=== PATIENT | female | born 1990 | race Caucasian/White ===

== ENCOUNTER 2020-10-13 11:33 | Outpatient (REF) | payer MEDICAID, SELFPAY ==
[2020-10-14 08:31] LABS: BV Int Neg Control Negative (Negative); BV Int Pos Control Positive (Positive)
[2020-10-15 04:47] LABS: C. trachomatis RNA TMA NOT DETECTED (NOT DETECTED); N. gonorrhoeae RNA TMA NOT DETECTED (NOT DETECTED)
== END 2020-10-13 11:34 | disposition home or self-care (01) ==
LOC: HO.LAB 11:33
PROVIDERS: Visit Provider Advanced Practice Midwife
DX: Z01.419 Encounter for gynecological examination (general) (routine) without abnormal findings (principal); Z30.09 Encounter for other general counseling and advice on contraception
CPT/HCPCS: 87480; 87491; 87510; 87591; 87660

== ENCOUNTER 2021-06-30 11:34 | Outpatient (REF) | payer MEDICAID, SELFPAY ==
[2021-07-01 02:56] LABS: CT PCR NOT DETECTED (Not Detect.); NG PCR NOT DETECTED (Not Detect.)
[2021-07-01 11:30] LABS: BV Int Neg Control Negative (Negative); BV Int Pos Control Positive (Positive)
== END 2021-06-30 11:35 | disposition home or self-care (01) ==
LOC: HO.LAB 11:34
PROVIDERS: Visit Provider Advanced Practice Midwife
DX: N92.3 Ovulation bleeding (principal); Z20.2 Contact with and (suspected) exposure to infections with a predominantly sexual mode of transmission
CPT/HCPCS: 87480; 87491; 87510; 87591; 87660; 99212

== ENCOUNTER 2021-07-26 11:18 | Outpatient (REF) | payer MEDICAID, SELFPAY ==
--- NOTE | ~2021-07-26 | US_ITS ---
EXAMINATION: US PELVIS CLINICAL INFORMATION: Ovulation bleeding. COMPARISON: None. TECHNIQUE: Ultrasound of the pelvis is performed using both transabdominal and transvaginal transducers along with Doppler. Transvaginal imaging is performed due to inadequate visualization transabdominally. FINDINGS: The uterus is anteverted and anteflexed measuring 11.4 cm in length, 5.4 cm in AP and 6.7 cm in transverse dimension. Endometrial thickness is 1.1 cm. There is a hypoechoic lesion with eccentric calcification in the posterior body of uterus measuring 2.0 x 2.0 x 2.5 cm, suggestive of fibroid. The cervix is heterogeneous with small anechoic cyst seen within. Adnexa: The right ovary is removed. Left ovary measures 5.8 x 4.8 x 3.1 cm. Volume 45.2 mL. There are 2 hyperechoic lesions in the left ovary measuring 4.5 x 3.2 x 2.7 cm and 0.6 x 0.7 x 0.5 cm, question small fibroids. US/US pelvic and transvaginal IMPRESSION: Suspect small left ovarian fibroids. Small nabothian cysts seen in a heterogeneous-appearing cervix. Likely calcified uterine fibroid in the posterior body of the uterus..
== END 2021-07-26 11:19 | disposition home or self-care (01) ==
LOC: HO.US 11:18
PROVIDERS: Visit Provider Advanced Practice Midwife
DX: N92.3 Ovulation bleeding (principal)
CPT/HCPCS: 76830; 76856

== ENCOUNTER → 2021-08-23 13:25 | Outpatient (BNVA) | payer MEDICAID, SELFPAY | PROVIDERS: Visit Provider Advanced Practice Midwife ==

== ENCOUNTER 2021-09-08 15:07 | Outpatient (REF) | payer MEDICAID, SELFPAY ==
[2021-09-08 16:46] LABS: Hematocrit 34.7 % (37.0-47.0); Hemoglobin 11.3 g/dl (12.0-16.0); Mean Corpuscular HGB Conc 32.6 g/dl (31.0-35.0); Mean Corpuscular Hemoglobin 28.2 pg (27.0-33.0); Mean Corpuscular Volume 86.5 fL (80.0-98.0); Mean Platelet Volume 10.1 fL (9.4-12.3); Platelet Count 371 X10*3/uL (160-400); Red Blood Count 4.01 X10*6/uL (4.20-5.50); Red Cell Distribution Width 15.7 % (11.0-16.0); White Blood Count 8.3 X10*3/uL (4.8-10.8)
[2021-09-08 17:23] LABS: HCG Quantitative < 2 mIU/mL; TSH reflex Free T4 1.56 uIU/mL (0.32-4.0)
[2021-09-09 08:51] LABS: CT PCR NOT DETECTED (Not Detect.); NG PCR NOT DETECTED (Not Detect.)
== END 2021-09-08 15:08 | disposition home or self-care (01) ==
LOC: HO.LAB 15:07
PROVIDERS: PCP Internal Medicine; Visit Provider Obstetrics & Gynecology
DX: N93.9 Abnormal uterine and vaginal bleeding, unspecified (principal); N83.299 Other ovarian cyst, unspecified side; D21.9 Benign neoplasm of connective and other soft tissue, unspecified
CPT/HCPCS: 36415; 84443; 84702; 85027; 87491; 87591; 99212

== ENCOUNTER 2021-09-22 16:10 | Outpatient (REF) | payer MEDICAID, SELFPAY ==
--- NOTE | ~2021-09-22 | US_ITS ---
EXAMINATION: US PELVIS CLINICAL INFORMATION: Abnormal bleeding, follow-up left dermoid. COMPARISON: Ultrasound pelvis 07/26/2021. TECHNIQUE: Ultrasound of the pelvis is performed using both transabdominal and transvaginal transducers along with Doppler. Transvaginal imaging is performed due to inadequate visualization transabdominally. FINDINGS: Uterus: The uterus is anteverted and measures 10.6 cm in length, 5.6 cm AP and 6.4 cm in transverse dimension. The double wall endometrial thickness is 1.5 cm. The uterus is smooth in contour and has normal myometrial echogenicity. There is a hypoechoic lesion in the upper posterior body of the uterus measuring 1.7 x 2 0.1 to 2.7 cm. Previously it measured 2.0 x 2.0 x 2.5 cm.. Adnexa: Right ovary has been surgically removed. Left ovary measures 3.0 x 3.0 x 2.0 cm. Volume 9.6 mL. There is solitary heterogeneous lesion measuring 4.2 x 3.9 x 3.5 cm. Previously it measured 4.5 x 3.2 x 2.7 cm. There is no fracture free fluid in the cul-de-sac. US/US pelvic and transvaginal IMPRESSION: Anteverted uterus with a solitary fibroid in the posterior upper body of the uterus, stable. Heterogeneous hyperechoic lesion left ovary, stable. There is no free fluid in the cul-de-sac.
== END 2021-09-22 16:11 | disposition home or self-care (01) ==
LOC: HO.US 16:10
PROVIDERS: PCP Internal Medicine; Visit Provider Obstetrics & Gynecology
DX: N93.9 Abnormal uterine and vaginal bleeding, unspecified (principal)
CPT/HCPCS: 76830; 76856

== ENCOUNTER → 2021-10-04 15:08 | Outpatient (BNVA) | payer MEDICAID, SELFPAY | PROVIDERS: PCP Internal Medicine; Visit Provider Obstetrics & Gynecology | DX: N93.9 Abnormal uterine and vaginal bleeding, unspecified (principal); N83.299 Other ovarian cyst, unspecified side | CPT/HCPCS: 99212 ==

== ENCOUNTER 2021-10-31 12:37 | Outpatient (REF) | payer MEDICAID, SELFPAY ==
--- NOTE | ~2021-10-31 | MR_ITS ---
EXAMINATION: MR PELVIS WITHOUT AND WITH CONTRAST CLINICAL INFORMATION: Pelvic pain with history of a left ovarian lesion. COMPARISON: Pelvic ultrasound dated from 09/22/2021. TECHNIQUE: Multiple routine MRI sequences through the pelvis were obtained on a high-field 1.5 Tram MRI before and after the uneventful administration of 8 mL Gadavist gadolinium-based IV contrast. FINDINGS: UTERUS: Anteverted uterus has a normal configuration and measures 10.2 cm [id number]-[id number] x 5.7 cm anterior-posterior x 7.1 cm transverse. Normal endometrial thickness for patient's age, 1.1 cm. There is thickening of the posterior upper junctional zone measuring up to 2.3 cm in maximum thickness (4:15). There are a few T2 hypointense intramural fibroids, for instance measuring 1.1 cm in the anterior uterine body (4:16). scar is identified in the lower anterior uterus. Susceptibility artifacts are also identified in the lower anterior abdominal wall, likely from prior surgery. CERVIX: Small nabothian cysts. VAGINA: Normal; no mass seen. RIGHT OVARY: History of right oophorectomy. LEFT OVARY: The left ovary measures approximately 4.8 x 3.5 x 4.3 cm. There is redemonstration of an up to 4 cm left ovarian lesion demonstrating an area of increased T1/T2 signal that drops out in the fat saturated images, most consistent with the presence of macroscopic fat. On postcontrast images, there is no suspicious nodular enhancement within this lesion. KIDNEYS: Two normally positioned kidneys are seen. No hydronephrosis. BLADDER: Urinary bladder normal. PELVIC FREE FLUID: No free fluid or ascites. LYMPH NODES: No pathologically enlarged lymph nodes. OSSEOUS STRUCTURES: No acute or suspicious osseous abnormalities. 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 Given the size of the lesion, this could predispose to torsion/detorsion, and surgical referral could be obtained if indicated. Abnormal thickening of the junctional zone in the posterior upper uterus, raising the possibility of focal adenomyosis. Small intramural uterine fibroids.
[2021-10-31 12:38] LABS: Blood Urea Nitrogen 11 mg/dL (9-16); Estimated Glomerular Filt Rate > 60
== END 2021-10-31 12:38 | disposition home or self-care (01) ==
LOC: HO.MRI 12:37
PROVIDERS: Visit Provider Obstetrics & Gynecology
DX: N83.299 Other ovarian cyst, unspecified side (principal); N93.9 Abnormal uterine and vaginal bleeding, unspecified
CPT/HCPCS: 36415; 72197; 82565; 84520; A9585

== ENCOUNTER → 2021-11-02 13:41 | Outpatient (BNVA) | payer MEDICAID, SELFPAY | PROVIDERS: Visit Provider Obstetrics & Gynecology ==

== ENCOUNTER 2021-11-23 13:49 | Outpatient (REF) | payer MEDICAID, SELFPAY ==
[2021-11-26 01:21] LABS: HPV mRNA E6/E7 rflx Not Detected (Not Detected)
== END 2021-11-23 13:50 | disposition home or self-care (01) ==
LOC: HO.LAB 13:49
PROVIDERS: PCP Internal Medicine; Visit Provider Advanced Practice Midwife
DX: Z01.411 Encounter for gynecological examination (general) (routine) with abnormal findings (principal); Z11.51 Encounter for screening for human papillomavirus (HPV); N93.9 Abnormal uterine and vaginal bleeding, unspecified; N83.292 Other ovarian cyst, left side; D48.9 Neoplasm of uncertain behavior, unspecified; Z90.721 Acquired absence of ovaries, unilateral
CPT/HCPCS: 87624; 88142

== ENCOUNTER → 2022-07-28 10:38 | Outpatient (BNVA) | payer SELFPAY | PROVIDERS: PCP Internal Medicine; Visit Provider Physician Assistant | DX: Z02.79 Encounter for issue of other medical certificate (principal) ==

== ENCOUNTER 2023-06-06 16:28 | Emergency (ER) | payer OTHER, SELFPAY ==
--- NOTE | ~2023-06-06 | XR_ITS ---
EXAMINATION: XR LUMBOSACRAL SPINE CLINICAL INFORMATION: Pain. COMPARISON: 08/05/2019. TECHNIQUE: Three views of the lumbosacral spine. FINDINGS: There is minimal retrolisthesis of L4 over L5. The alignment is otherwise normal. The disc spaces are maintained. The bone mineralization is normal. The vertebral body heights are maintained. The soft tissues are unremarkable. XR/XR lumbar spine 2-3V IMPRESSION: Minimal retrolisthesis L4 over L5. No evidence for fracture.
--- NOTE | ~2023-06-06 | XR_ITS ---
EXAMINATION: XR KNEE, LEFT CLINICAL INFORMATION: Pain. COMPARISON: None available. TECHNIQUE: Four views of the left knee. FINDINGS: No fracture or joint effusion. Alignment is anatomic. Joint spaces are maintained. No abnormal soft tissue calcification. XR/XR knee LT 3V IMPRESSION: No significant abnormality identified.
--- NOTE | ~2023-06-06 | XR_ITS ---
EXAMINATION: XR KNEE, RIGHT CLINICAL INFORMATION: Pain. Fall. COMPARISON: None available. TECHNIQUE: Four views of the right knee. FINDINGS: No fracture or joint effusion. Alignment is anatomic. Joint spaces are maintained. No abnormal soft tissue calcification. XR/XR knee RT 3V IMPRESSION: No significant abnormality identified.
[2023-06-06 16:49] VITALS: BP 168/100; PULSE 75; RESP 14; TEMP 36.7; O2SAT 99; BMI 28.7
--- NOTE | 2023-06-06 16:49 | ED_ITS ---
HPI - Fall General Chief Complaint: Fall Stated Complaint: fall at work, leg/back pain Time Seen by Provider: 06/06/23 17:55 Source: patient Mode of arrival: ambulatory Limitations: no limitations History of Present Illness HPI Narrative: Patient is a 33-year-old female who presents emergency department for evaluation after work-related injury. Patient states that she was bringing a hand cart filled with boxes down a set of stairs. She slipped on the last stair causing her to fall backwards with her back striking into the stairwell and the hand cart falling on top of her with the boxes landing on her knees. She denies any head strike or loss of consciousness. Denies anticoagulants unknown coagulation disorders. She is currently reporting pain diffusely across the lower back in addition to bilateral knee pain. She was able to ambulate after the incident occurred though it is painful to do so. Denies any numbness or tingling of the extremities. Denies any bladder bowel dysfunction. Denies any chest pain, shortness of breath, abdominal pain. Related Data Home Medications Medication Instructions Recorded Confirmed lisinopril 20 mg tablet 20 mg PO DAILY 10/13/20 11/23/21 Previous Rx's Medication Instructions Recorded ferrous sulfate 325 mg (65 mg 325 mg PO DAILY 90 days #90 tabs 12/27/21 iron) tablet,delayed release Allergies Allergy/AdvReac Type Severity Reaction Status Date / Time No Known Allergies Allergy Verified 11/23/21 14:06 [No Known Allergies*] Review of Systems Review of Systems: Yes all other systems are reviewed and are negative PMFSH Past Medical History Attestation statement: The following information was validated with the patient. Source: old records reviewed Medical History Abscess of right fallopian tube Anxiety HTN (hypertension) Surgical History History of Hx of removal of ovary Family History Family History Paternal Aunt Breast cancer Social History Social History Alcohol intake: never Advance Directives: No Advance Directives Information Provided: No Gender identity: Female Physical Exam Vital Signs: Vital Signs: Last Vital Signs Temp 98.0 F 06/06/23 16:49 Pulse 75 06/06/23 16:49 Resp 14 06/06/23 16:49 BP 168/100 H 06/06/23 16:49 Pulse Ox 99 06/06/23 16:49 O2 Del Method Room Air 06/06/23 16:49 BMI result Body Mass Index 28.7 Appearance: Alert.?Oriented to person, place and time. No acute distress.?Normal affect. Eyes: Pupils equal, round and reactive to light.? ENT: Pharynx normal.?? Neck: Normal inspection.? Neck supple.?? CVS: Heart sounds normal. Normal heart rate and rhythm.? Pulses normal.?? Respiratory: No respiratory distress.? Lung sounds clear to auscultation bilaterally?? Abdomen: Soft and non-tender. Normoactive bowel sounds. Back: Bilateral lumbar spine paraspinal muscle tenderness upon palpation. No palpable step-offs, deformities, Skin: Skin warm and dry.? Normal skin color.? Extremities: No lower extremity edema.? No calf ttp?2+ DP/PT pulse bilaterally. Examination of right knee is unremarkable no deformity, laxity or effusion. Left knee with small effusion, crepitus, no laxity or obvious deformity. Neuro: Moves all extremities spontaneously. Sensation intact bilaterally. CN II- XII intact. No focal neuro deficits. Ambulates with normal steady gait. Course Course Course Narrative: RME: 33yo F c/o bilateral knee and low back pain s/p mechanical trip and fall while at work this morning. Hypertensive in triage, ambulating with mild limping gait X-rays ordered Full HPI, ROS and PE to be performed by primary ED provider. Medical Decision Making Medical Decision Making MDM Narrative: Patient is a 33-year-old female who presents emergency department for work- related injury with fall and subsequent bilateral knee and lower back pain. At the time of my examination she is overall well-appearing. She is nontoxic, afebrile. She is hypertensive, though she has not yet taken her antihypertensive medication. She is asymptomatic denies dizziness, lighthea dedness, chest pain, shortness of breath. Reviewed XR imaging obtained from rapid medical examination, bilateral knees are without any acute fracture or dislocation. Upon physical examination there is no laxity though she does have a small effusion with crepitus in the left. Extremities are neurovascularly intact distally. She is ambulatory with an antalgic gait. Discussed conservative treatment her sprain of the knee with rest, ice, compression with beneath bandage, elevation, acetaminophen/ibuprofen for pain. XR imaging of the lumbar spine revealing minimal retro listhesis of L4 over L5 which may be related to injury she sustained today. At this time no indication of cauda equina syndrome, would defer CT/MRI imaging. She has normal bladder bowel dysfunction. Advised he follow up with primary care provider/workman's comp for further management, discussed she may require course of physical therapy should her pain persist. We discussed worrisome symptoms that would warrant re- evaluation or emergency department. Differential Diagnosis Differential Diagnoses: The differential diagnosis associated with the presentat ion includes (As noted above) Independent Interpretation I performed an independent interpretation of an: Plain X-Ray (I personally interpreted x-ray imaging of the bilateral knees lumbar spine agree with radiologist impression, no evidence of acute fracture or dislocation.) Radiology Impression Discussion of test interpretation with radiology: I have reviewed the radiologist's reading. Radiologist Impression: XR/XR knee LT 3V IMPRESSION: No significant abnormality identified. XR/XR knee RT 3V IMPRESSION: No significant abnormality identified. XR/XR lumbar spine 2-3V IMPRESSION: Minimal retrolisthesis L4 over L5. ? No evidence for fracture. Tests considered The following testing was considered but not selected: Considered CT/MRI imaging of lumbar spine as noted above, imaging deferred at this time. Prescription Management I considered prescription management with: Pain Medication Discharge Plan Discharge Clinical Impression: Left knee sprain, Retrolisthesis of vertebrae Patient Disposition: Home, Self-Care Instructions: Knee Sprain (ED), How to Use an Elastic Bandage (ED), Spondylolisthesis (ED) Additional Instructions: As discussed, the x-rays of your knees do not show any evidence of a fracture or dislocation. Furthermore a ligament injury is not well appreciated on x-ray imaging. If you continue to have pain, it you should follow-up with primary care provider/workman's comp provider for further evaluation. Please be sure to rest, apply ice to the bilateral knees for 10-15 minutes 3-4 times daily, use Stefan bandage for compression, elevate your legs when possible. You can take ibuprofen 200 mg, 3 tablets (600mg) every 6-8 hours as needed for pain, in addition to Tylenol 500 mg, 2 tablets (1,000mg) every 4-6 hours as needed for pain, but not to exceed 3 doses daily (3,000mg).? The x-ray imaging of your lower back indicates minimal retro isthesis of L4 over L5, as we discussed, this may be in relation to the fall you sustained at work today. Please contact your primary care provider/workman's comp provider for further evaluation and management. It may be beneficial for you to have a course of physical therapy if you continue to have pain. You may return back to emergency department any new or worsening symptoms or concerns. Prescriptions: No Action ferrous sulfate 325 mg (65 mg iron) tablet,delayed release (DR/EC) 325 mg PO DAILY 90 Days Qty: 90 1RF lisinopril 20 mg tablet 20 mg PO DAILY Referrals: Physician,Unknown J [Primary Care Provider] - Stand Alone Forms: Work/School Release Interventions: ED Discharge Assessment Last Done: 06/06/23 19:11 Discharge Date/Time: 06/06/23 19:11
--- OUTSIDE RECORDS SUMMARY | 2023-06-06 18:15 | XMS_ITS | Continuity of Care Document ---
Author Name Unknown Organization [facility] [place] [facility] Address [address] [place] [address]- Care Team Providers Care Mosaicist Name Role Phone Derek Cox III, MD Primary Care Physician Encounter [facility] [place] [facility] R [id number] Date(s): 03/10/22 - 04/09/22 [facility]te [facility] [address] [place] [address]- Attending Physician: Admlisa, Efrain Admitting Physician: AdmtrEfrain Referring Physician: Admtr, Ar8 Allergies, Adverse Reactions, Alerts No Known Medication Allergies Immunizations Given and Recorded Vaccine Date Status Refusal Reason SARS-CoV-2 (COVID-19) mRNA-1273 vaccine 09/22/21 R ecorded SARS-CoV-2 (COVID-19) mRNA-1273 vaccine 03/14/21 R ecorded SARS-CoV-2 (COVID-19) mRNA-1273 vaccine 02/14/21 R ecorded Medications Climara 0.05 mg/24 hours weekly transdermal film, extended release 1 patch, Topically, Every week, # 4 patch, 1 Refills, Maintenance, 03/30/22 23:06:00 EDT, Patch, [facility], Partial fill upon patient request if the prescription is for a schedule II opioid drug., 167.64, cm, 03/30/22 13:05:00 EDT... Start Date: 03/30/22 Status: Ordered Colace sodium 100 mg oral capsule 100 mg, 1, capsule, By Mouth, 2 times a day, PRN, # 30 capsule, Refills 0, Tot. Refills 0, Maintenance, for constipation, 03/30/22 23:06:00 EDT, Route to Pharmacy Electronically, [facility], Partial fill upon patient request if the... Start Date: 03/30/22 Status: Ordered FeroSul 325 mg oral tablet 1 tablet = 325 mg, By Mouth, Daily Start Date: 03/31/22 Status: Ordered ibuprofen 800 mg oral tablet 800 mg, 1, tablet, By Mouth, Every 8 hours, # 30 tablet, Refills 0, Tot. Refills 0, Maintenance, 03/30/22 23:05:00 EDT, Route to Pharmacy Electronically, [facility], Partial fill upon patient request if the prescription is for a sc... Start Date: 03/30/22 Status: Ordered Lisinopril = 20 mg, By Mouth, Daily, 0 Refills, Maintenance, 12/30/21 10:29:00 EST, Partial fill upon patient request if the prescription is for a schedule II opioid drug. Start Date: 12/30/21 Status: Ordered Problem List Condition Effective Dates Status Health Status Inform ant Anxiety(Confirmed) Active Hypertension(Confirmed) Active Pyosalpinx(Confirmed) Active
--- OUTSIDE RECORDS SUMMARY | 2023-06-06 18:15 | XMS_ITS | Continuity of Care Document ---
Author Name Unknown Organization [facility] [place] Address [address] [place] [address]- Care Team Providers Care Cruller Maker Machine Name Role Phone Not on Staff, PCP Primary Care Physician Unavail able Encounter [facility] [place] Date(s): 08/30/22 - 09/29/22 [facility] [place] [facility] [address] [place] [address]- Allergies, Adverse Reactions, Alerts No Known Medication Allergies Immunizations Given and Recorded Vaccine Date Status Refusal Reason SARS-CoV-2 (COVID-19) mRNA-1273 vaccine 09/22/21 R ecorded SARS-CoV-2 (COVID-19) mRNA-1273 vaccine 03/14/21 R ecorded SARS-CoV-2 (COVID-19) mRNA-1273 vaccine 02/14/21 R ecorded Medications Climara 0.05 mg/24 hours weekly transdermal film, extended release 1 patch, Topically, Every week, # 4 patch, 1 Refills, Maintenance, 09/05/22 9:13:00 EST, Patch, [facility], Partial fill upon patient request if the prescription is for a scheduleII opioid drug., 167.64, cm, 07/31/22 15:00:00 EDT,... Start Date: 09/05/22 Status: Ordered Colace sodium 100 mg oral capsule 100 mg, 1, capsule, By Mouth, 2 times a day, PRN, # 30 capsule, Refills 0, Tot. Refills 0, Maintenance, for constipation, 03/30/22 23:06:00 EDT, Route to Pharmacy Electronically, [facility], Partial fill upon patient request if the... Start Date: 03/30/22 Status: Ordered Femring 0.1 mg/24 hr vaginal ring 1 each, Vaginally, Every 3 months, # 1 each, 2 Refills, Maintenance, 08/31/22 10:34:00 EST, [facility], Partial fill upon patient request if the prescription is for a schedule II opioid drug., 167.64, cm, 07/31/22 15:00:00 EDT, Hei... Start Date: 08/31/22 Status: Ordered FeroSul 325 mg oral tablet 1 tablet = 325 mg, By Mouth, Daily Start Date: 03/31/22 Status: Ordered ibuprofen 800 mg oral tablet 800 mg, 1, tablet, By Mouth, Every 8 hours, # 30 tablet, Refills 0, Tot. Refills 0, Maintenance, 04/14/22 10:16:00 EDT, Route to Pharmacy Electronically, [facility], Partial fill upon patient request if the prescription is for a sc... Start Date: 04/14/22 Status: Ordered Lisinopril = 20 mg, By Mouth, Daily, 0 Refills, Maintenance, 12/30/21 10:29:00 EST, Partial fill upon patient request if the prescription is for a schedule II opioid drug. Start Date: 12/30/21 Status: Ordered Problem List Condition Confirmation Course Effective Dates Status Health St at[facility] Informant Anxiety Confirmed Active Hypertension Confirmed Active Obese class I Confirmed Active Pyosalpinx Confirmed Active Patient Care team information Care Team Personnel Name: Linette Jefferson RN Position: S RN Member Role: Primary Care Nurse Name: Not on Staff, PCP Position: S Physician (General Medicine) Member Role: PCP Care Team Related Persons Name: ROSELIA CHAPMAN Address: home [address] [place] [id number]
--- OUTSIDE RECORDS SUMMARY | 2023-06-06 18:15 | XMS_ITS | Continuity of Care Document ---
Author Name Unknown Organization [facility] Siobhan hughess [facility] Address [address] [place] [address]- Care Team Providers Care Gear Technician Name Role Phone Not on Staff, PCP Primary Care Physician Unavail able Encounter [facility] Date(s): 05/18/22 - 06/17/22 [facility] [address] [place] [address]- Allergies, Adverse Reactions, Alerts No Known Medication Allergies Immunizations Given and Recorded Vaccine Date Status Refusal Reason SARS-CoV-2 (COVID-19) mRNA-1273 vaccine 09/22/21 R ecorded SARS-CoV-2 (COVID-19) mRNA-1273 vaccine 03/14/21 R ecorded SARS-CoV-2 (COVID-19) mRNA-1273 vaccine 02/14/21 R ecorded Medications Climara 0.1 mg/24 hours weekly transdermal film, extended release 1 patch, Topically, Every week, # 4 patch, 5 Refills, Maintenance, 06/08/22 14:51:00 EDT, Patch, [facility], Partial fill upon patient request if the prescription is for a schedule II opioid drug., 167.64, cm, 04/14/22 10:01:00 EDT... Start Date: 06/08/22 Status: Ordered Colace sodium 100 mg oral capsule 100 mg, 1, capsule, By Mouth, 2 times a day, PRN, # 30 capsule, Refills 0, Tot. Refills 0, Maintenance, for constipation, 03/30/22 23:06:00 EDT, Route to Pharmacy Electronically, [facility], Partial fill upon patient request if the... Start Date: 03/30/22 Status: Ordered FeroSul 325 mg oral tablet 1 tablet = 325 mg, By Mouth, Daily Start Date: 03/31/22 Status: Ordered ibuprofen 800 mg oral tablet 800 mg, 1, tablet, By Mouth, Every 8 hours, # 30 tablet, Refills 0, Tot. Refills 0, Maintenance, 04/14/22 10:16:00 EDT, Route to Pharmacy Electronically, [facility], Partial fill upon patient request [...] Status Inform ant Anxiety(Confirmed) Active Hypertension(Confirmed) Active Obese class I(Confirmed) Active Pyosalpinx(Confirmed) Active Care Team Personnel Name: Not on Staff, PCP
--- OUTSIDE RECORDS SUMMARY | 2023-06-06 18:15 | XMS_ITS | Continuity of Care Document ---
Author Name Unknown Organization [facility] [place] [facility] Address [address] [place] [address]- Care Team Providers Care Gas Appliance Mechanic Name Role Phone Not on Staff, PCP Primary Care Physician Unavail able [place] [facility] [place]04[place] - 10/04/22 [facility] [place] [facility] [address] [place] [address]- Allergies, Adverse Reactions, Alerts No Known Medication Allergies Immunizations Given and Recorded Vaccine Date Status Refusal Reason SARS-CoV-2 (COVID-19) mRNA-1273 vaccine 09/22/21 R ecorded SARS-CoV-2 (COVID-19) mRNA-1273 vaccine 03/14/21 R ecorded SARS-CoV-2 (COVID-19) mRNA-1273 vaccine 02/14/21 R ecorded Medications Climara 0.05 mg/24 hours weekly transdermal film, extended release 1 patch, Topically, Every week, # 4 patch, 1 Refills, Maintenance, 09/05/22 9:13:00 EST, Patch, [facility], Partial fill upon patient request if the prescription is for a scheduleII opioid drug., 167.64, cm, 07/31/22 15:00:00 EDT,... Start Date: 09/05/22 Status: Ordered Colace sodium 100 mg oral capsule 100 mg, 1, capsule, By Mouth, 2 times a day, PRN, # 30 capsule, Refills 0, Tot. Refills 0, Maintenance, for constipation, 03/30/22 23:06:00 EDT, Route to Pharmacy Electronically, [facility], Partial fill upon patient request if the... Start Date: 03/30/22 Status: Ordered Femring 0.1 mg/24 hr vaginal ring 1 each, Vaginally, Every 3 months, # 1 each, 2 Refills, Maintenance, 08/31/22 10:34:00 EST, [facility], Partial fill upon patient request [...] 04/14/22 10:16:00 EDT, Route to Pharmacy Electronically, [facility], Partial fill upon patient request if [...] Related Persons Name: ROSELIA CHAPMAN Address: home [address] [place] [id number]
--- OUTSIDE RECORDS SUMMARY | 2023-06-06 18:15 | XMS_ITS | Continuity of Care Document ---
Author Name Unknown Organization [facility] Address [address], [address] [place] [address]- Care Team Providers Care Dental Tech Name Role Phone Not on Staff, PCP Primary Care Physician Unavail able Encounter [facility] [place] Date(s): 07/31/22 - 08/07/22 [facility] Mary Dunc[facility] [address], [address] [place] [address]- Attending Physician: Nicole Valentine MD Allergies, Adverse Reactions, Alerts No Known Medication Allergies Immunizations Given and Recorded Vaccine Date Status Refusal Reason SARS-CoV-2 (COVID-19) mRNA-1273 vaccine 09/22/21 R ecorded SARS-CoV-2 (COVID-19) mRNA-1273 vaccine 03/14/21 R ecorded SARS-CoV-2 (COVID-19) mRNA-1273 vaccine 02/14/21 R ecorded Medications Climara 0.1 mg/24 hours weekly transdermal film, extended release 1 patch, Topically, Every week, # 4 patch, 5 Refills, Maintenance, 06/08/22 14:51:00 EDT, Patch, [facility], Partial fill upon patient request if the prescription is for a schedule II opioid drug., 167.64, cm, 04/14/22 10:01:00 EDT... Start Date: 06/08/22 Status: Ordered Colace sodium 100 mg oral capsule 100 mg, 1, capsule, By Mouth, 2 times a day, PRN, # 30 capsule, Refills 0, Tot. Refills 0, Maintenance, for constipation, 03/30/22 23:06:00 EDT, Route to Pharmacy Electronically, [facility], Partial fill upon patient request if the... Start Date: 03/30/22 Status: Ordered FeroSul 325 mg oral tablet 1 tablet = 325 mg, By Mouth, Daily Start Date: 03/31/22 Status: Ordered ibuprofen 800 mg oral tablet 800 mg, 1, tablet, By Mouth, Every 8 hours, # 30 tablet, Refills 0, Tot. Refills 0, Maintenance, 04/14/22 10:16:00 EDT, Route to Pharmacy Electronically, [facility], Partial fill upon patient request [...] class I Confirmed Active Pyosalpinx Confirmed Active Vital Signs Most recent to oldest [Reference Range]: 1 Height 167.64 cm (07/31/22 3:00 PM) Weight 87.36 kg (07/31/22 3:00 PM) Pulse Rate [55-90 bpm] 79 bpm (07/31/22 3:00 PM) Body Mass Index [18.5-24.99 kg/m2] 31.09 kg/m2 *>HHI* (07/31/22 3:00 PM) Blood Pressure [90-138/55-84 mm Hg] 123/ 78mm Hg (07/31/22 3:00 PM) Respiratory Rate [16-30 br/min] 20 br/mi n (07/31/22 3:00 PM) Weight Obtained Via Standing scale (07/31/22 3:00 PM) Patient Care team information Personnel Name: Not on Staff, PCP
--- OUTSIDE RECORDS SUMMARY | 2023-06-06 18:15 | XMS_ITS | Continuity of Care Document ---
Author Name Unknown Organization [facility] Siobhan hughess [facility] Address [address], [address] [place] [address]- Care Team Providers Care Strap Machine Operator Automatic Name Role Phone Not on Staff, PCP Primary Care Physician Unavail able Encounter [facility] Date(s): 05/18/22 - 06/25/22 [facility] [address], [address] [place] [address]- Attending Physician: Nicole Valentine MD Allergies, Adverse [...] 5 Refills, Maintenance, 06/08/22 14:51:00 EDT, Patch, [facility], Partial fill upon patient request if the prescription is for a schedule II opioid drug., 167.64, cm, 04/14/22 10:01:00 EDT... Start Date: 06/08/22 Status: Ordered Colace sodium 100 mg oral capsule 100 mg, 1, capsule, By Mouth, 2 times a day, PRN, # 30 capsule, Refills 0, Tot. Refills 0, Maintenance, for constipation, 03/30/22 23:06:00 EDT, Route to Pharmacy Electronically, [facility], Partial fill upon patient request if the... Start Date: 03/30/22 Status: Ordered FeroSul 325 mg oral tablet 1 tablet = 325 mg, By Mouth, Daily Start Date: 03/31/22 Status: Ordered ibuprofen 800 mg oral tablet 800 mg, 1, tablet, By Mouth, Every 8 hours, # 30 tablet, Refills 0, Tot. Refills 0, Maintenance, 04/14/22 10:16:00 EDT, Route to Pharmacy Electronically, [facility], Partial fill upon patient request [...]
--- OUTSIDE RECORDS SUMMARY | 2023-06-06 18:15 | XMS_ITS | Continuity of Care Document ---
Author Name Unknown Organization [facility] Address [address], [address] [place] [address]- Care Team Providers Care Molecular Spectroscopist Name Role Phone Not on Staff, PCP Primary Care Physician Unavail able [place] [facility](s): 03/10/22 - 03/17/22 [facility] [address], [address] [place] [address]- Attending Physician: Nicole Valentine MD Referring Physician: Not on Staff, Referring MD Medications Ibuprofen Refills 0, Maintenance, 12/30/21 10:29:00 EST, Partial fill upon patient request if the prescription is for a schedule II opioid drug. Start Date: 12/30/21 Status: Ordered Lisinopril By Mouth, Daily, 0 Refills, Maintenance, 12/30/21 10:29:00 EST, Partial fill upon patient request if the prescription is for a schedule II opioid drug. Start Date: 12/30/21 Status: Ordered Problem List Condition Effective Dates Status Health Status Inform ant Anxiety(Confirmed) Active Hypertension(Confirmed) Active Pyosalpinx(Confirmed) Active
--- OUTSIDE RECORDS SUMMARY | 2023-06-06 18:15 | XMS_ITS | Continuity of Care Document ---
Author Name Unknown Organization [facility] Address [address], [address] [place] [address]- Care Team Providers Care Congressional Aide Name Role Phone Not on Staff, PCP Primary Care Physician Unavail able Encounter [facility] Date(s): 07/31/22 - 08/30/22 [facility]unc[facility] [address], [address] [place] [address]- Attending Physician: Efrain Rodriguez Admitting Physician: Efrain Rodriguez Referring Physician: AdmtrEfrain Allergies, Adverse Reactions, Alerts No Known Medication Allergies Immunizations Given and Recorded Vaccine Date Status Refusal Reason SARS-CoV-2 (COVID-19) mRNA-1273 vaccine 09/22/21 R ecorded SARS-CoV-2 (COVID-19) mRNA-1273 vaccine 03/14/21 R ecorded SARS-CoV-2 (COVID-19) mRNA-1273 vaccine 02/14/21 R ecorded Medications Climara 0.1 mg/24 hours weekly transdermal film, extended release 1 patch, Topically, Every week, # 4 patch, 5 Refills, Maintenance, 06/08/22 14:51:00 EDT, Patch, [facility], Partial fill upon patient request if the prescription is for a schedule II opioid drug., 167.64, cm, 04/14/22 10:01:00 EDT... Start Date: 06/08/22 Status: Ordered Colace sodium 100 mg oral capsule 100 mg, 1, capsule, By Mouth, 2 times a day, PRN, # 30 capsule, Refills 0, Tot. Refills 0, Maintenance, for constipation, 03/30/22 23:06:00 EDT, Route to Pharmacy Electronically, [facility], Partial fill upon patient request if the... Start Date: 03/30/22 Status: Ordered FeroSul 325 mg oral tablet 1 tablet = 325 mg, By Mouth, Daily Start Date: 03/31/22 Status: Ordered ibuprofen 800 mg oral tablet 800 mg, 1, tablet, By Mouth, Every 8 hours, # 30 tablet, Refills 0, Tot. Refills 0, Maintenance, 04/14/22 10:16:00 EDT, Route to Pharmacy Electronically, [facility], Partial fill upon patient request if [...] Nurse Name: Not on Staff, PCP Position: [facility] Physician (General Medicine) Member Role: PCP Care Team Related Persons Name: ROSELIA CHAPMAN Address: home [address] [place] [id number]
--- OUTSIDE RECORDS SUMMARY | 2023-06-06 18:15 | XMS_ITS | Continuity of Care Document ---
Author Name Unknown Organization [facility] Address [address], [address] [place] [address]- Care Team Providers Care Posting Clerk Name Role Phone Not on Staff, PCP Primary Care Physician Unavail able Encounter [facility] [place] Date(s): 12/30/21 - 01/06/22 [facility] [address], [address] [place] [address]- Attending Physician: Meme FISHER, Nicole Medications Ibuprofen Refills 0, Maintenance, 12/30/21 10:29:00 [...] ant Anxiety(Confirmed) Active Hypertension(Confirmed) Active Pyosalpinx(Confirmed) Active Vital Signs Most recent to oldest [Reference Range]: 1 Weight 86.45 kg (12/30/21 10:28 AM) Pulse Rate [55-90 bpm] 85 bpm (12/30/21 10:28 AM) Blood Pressure [90-138/55-84 mm Hg] 115/ 66mm Hg (12/30/21 10:28 AM) Respiratory Rate [16-30 br/min] 21 br/mi n (12/30/21 10:28 AM) Blood pressure sites Arm, left (12/30/21 10:28 AM) Weight Obtained Via Standing scale (12/30/21 10:28 AM)
--- OUTSIDE RECORDS SUMMARY | 2023-06-06 18:15 | XMS_ITS | Continuity of Care Document ---
Author Name Unknown Organization [facility] Address [address], [address] [place] [address]- Care Team Providers Care Bread Jockey Name Role Phone Not on Staff, PCP Primary Care Physician Unavail able Encounter [facility] Date(s): 05/26/22 - 06/25/22 [facility] [employer] [employer] [facility] [address], [address] [place] [address]- Attending Physician: Efrain Rodriguez Admitting Physician: Admtr, Efrain Referring Physician: Admtr, Ar8 Allergies, Adverse Reactions, [...] 5 Refills, Maintenance, 06/08/22 14:51:00 EDT, Patch, [facility], Partial fill upon patient request if the prescription is for a schedule II opioid drug., 167.64, cm, 04/14/22 10:01:00 EDT... Start Date: 06/08/22 Status: Ordered Colace sodium 100 mg oral capsule 100 mg, 1, capsule, By Mouth, 2 times a day, PRN, # 30 capsule, Refills 0, Tot. Refills 0, Maintenance, for constipation, 03/30/22 23:06:00 EDT, Route to Pharmacy Electronically, [facility], Partial fill upon patient request if the... Start Date: 03/30/22 Status: Ordered FeroSul 325 mg oral tablet 1 tablet = 325 mg, By Mouth, Daily Start Date: 03/31/22 Status: Ordered ibuprofen 800 mg oral tablet 800 mg, 1, tablet, By Mouth, Every 8 hours, # 30 tablet, Refills 0, Tot. Refills 0, Maintenance, 04/14/22 10:16:00 EDT, Route to Pharmacy Electronically, [facility], Partial fill upon patient request [...]
--- OUTSIDE RECORDS SUMMARY | 2023-06-06 18:15 | XMS_ITS | Continuity of Care Document ---
Author Name Unknown [facility] Address [address], [address] [place] [address]- Care Team Providers Care Mutual Fund Accountant Name Role Phone Not on Staff, PCP Primary Care Physician Unavail able Encounter [facility] Date(s): 02/11/22 - 06/11/22 [facility] [address], [address] [place] [address]- Attending Physician: Nicole Valentine MD Referring Physician: Not on Staff, Referring MD Allergies, Adverse Reactions, Alerts No Known [...] 5 Refills, Maintenance, 06/08/22 14:51:00 EDT, Patch, [facility], Partial fill upon patient request if the prescription is for a schedule II opioid drug., 167.64, cm, 04/14/22 10:01:00 EDT... Start Date: 06/08/22 Status: Ordered Colace sodium 100 mg oral capsule 100 mg, 1, capsule, By Mouth, 2 times a day, PRN, # 30 capsule, Refills 0, Tot. Refills 0, Maintenance, for constipation, 03/30/22 23:06:00 EDT, Route to Pharmacy Electronically, [facility], Partial fill upon patient request if the... Start Date: 03/30/22 Status: Ordered FeroSul 325 mg oral tablet 1 tablet = 325 mg, By Mouth, Daily Start Date: 03/31/22 Status: Ordered ibuprofen 800 mg oral tablet 800 mg, 1, tablet, By Mouth, Every 8 hours, # 30 tablet, Refills 0, Tot. Refills 0, Maintenance, 04/14/22 10:16:00 EDT, Route to Pharmacy Electronically, [facility], Partial fill upon patient request if [...]
--- OUTSIDE RECORDS SUMMARY | 2023-06-06 18:15 | XMS_ITS | Continuity of Care Document ---
Author Name Unknown Organization [facility] Address [address], [address] [place] [address]- Care Team Providers Care Digital Solution Architect Name Role Phone Not on Staff, PCP Primary Care Physician Unavail able Encounter [facility] [place] Date(s): 04/14/22 - 04/21/22 [facility] [address], [address] [place] [address]- Attending Physician: Nicole Valentine MD Referring Physician: [...] 1 Refills, Maintenance, 03/30/22 23:06:00 EDT, Patch, [facility], Partial fill upon patient request if the prescription is for a schedule II opioid drug., 167.64, cm, 03/30/22 13:05:00 EDT... Start Date: 03/30/22 Status: Ordered Colace sodium 100 mg oral capsule 100 mg, 1, capsule, By Mouth, 2 times a day, PRN, # 30 capsule, Refills 0, Tot. Refills 0, Maintenance, for constipation, 03/30/22 23:06:00 EDT, Route to Pharmacy Electronically, [facility], Partial fill upon patient request if the... Start Date: 03/30/22 Status: Ordered FeroSul 325 mg oral tablet 1 tablet = 325 mg, By Mouth, Daily Start Date: 03/31/22 Status: Ordered ibuprofen 800 mg oral tablet 800 mg, 1, tablet, By Mouth, Every 8 hours, # 30 tablet, Refills 0, Tot. Refills 0, Maintenance, 04/14/22 10:16:00 EDT, Route to Pharmacy Electronically, [facility], Partial fill upon patient request [...] Active Obese class I(Confirmed) Active Pyosalpinx(Confirmed) Active Procedures Procedure Date Related Diagnosis Body Site Status Laparoscopic total hysterectomy 03/30/22 Completed LSO - Left salpingo-oophorectomy 03/30/22 Completed RSO - Right salpingo-oophorectomy Completed Vital Signs Most recent to oldest [Reference Range]: 1 Height 167.64 cm (04/14/22 10:01 AM) Weight 84.72 kg (04/14/22 10:01 AM) Pulse Rate [55-90 bpm] 102 bpm *H* (04/14/22 10:01 AM) Body Mass Index [18.5-24.99] 30.15 *>HHI* (04/14/22 10:01 AM) Blood Pressure [90-138/55-84 mm Hg] 133/ 68mm Hg (04/14/22 10:01 AM) Respiratory Rate [16-30 br/min] 25 br/mi n (04/14/22 10:01 AM) Blood pressure sites Arm, left (04/14/22 10:01 AM) Weight Obtained Via Standing scale (04/14/22 10:01 AM)
--- OUTSIDE RECORDS SUMMARY | 2023-06-06 18:15 | XMS_ITS | Continuity of Care Document ---
Author Name Unknown Organization [facility] Address [address] [place] [address]- Care Team Providers Care Electronics Production Supervisor Name Role Phone Kenny MORRIS MD, Derek Escobedo Primary Care Physician [place] [facility] [place] Date(s): 03/30/22 - 03/31/[address] [address] Discharge Disposition: A-D/C Home Attending Physician: Nicole Valentine MD Admitting Physician: Nicole Valentine MD Referring Physician: Nicole Valentine MD Allergies, Adverse Reactions, Alerts No Known Medication Allergies Immunizations Given and Recorded Vaccine Date Status Refusal Reason SARS-CoV-2 (COVID-19) mRNA-1273 vaccine 09/22/21 R ecorded SARS-CoV-2 (COVID-19) mRNA-1273 vaccine 03/14/21 R ecorded SARS-CoV-2 (COVID-19) mRNA-1273 vaccine 02/14/21 R ecorded Medications Acetaminophen Tablet 975 mg, Tablet, By Mouth, 03/31/22 8:00:00 EDT Start Date: 03/31/22 Stop Date: 03/31/22 Status: Completed Acetaminophen Tablet 975 mg, Tablet, By Mouth, 03/31/22 16:00:00 EDT Start Date: 03/31/22 Stop Date: 03/31/22 Status: Completed Climara 0.05 mg/24 hours weekly transdermal film, extended release 1 patch, Topically, Every week, # 4 patch, 1 Refills, Maintenance, 03/30/22 23:06:00 EDT, Patch, [facility], Partial fill upon patient request if the prescription is for a schedule II opioid drug., 167.64, cm, 03/30/22 13:05:00 EDT... Start Date: 03/30/22 Status: Ordered Colace sodium 100 mg oral capsule 100 mg, 1, capsule, By Mouth, 2 times a day, PRN, # 30 capsule, Refills 0, Tot. Refills 0, Maintenance, for constipation, 03/30/22 23:06:00 EDT, Route to Pharmacy Electronically, [facility], Partial fill upon patient request if the... Start Date: 03/30/22 Status: Ordered FeroSul 325 mg oral tablet 1 tablet = 325 mg, By Mouth, Daily Start Date: 03/31/22 Status: Ordered ibuprofen 800 mg oral tablet 800 mg, 1, tablet, By Mouth, Every 8 hours, # 30 tablet, Refills 0, Tot. Refills 0, Maintenance, 03/30/22 23:05:00 EDT, Route to Pharmacy Electronically, [facility], Partial fill upon patient request if the prescription is for a sc... Start Date: 03/30/22 Status: Ordered Lisinopril = 20 mg, By Mouth, Daily, 0 Refills, Maintenance, 12/30/21 10:29:00 EST, Partial fill upon patient request if the prescription is for a schedule II opioid drug. Start Date: 12/30/21 Status: Ordered oxyCODONE 5 mg oral tablet 5 mg, 1, tablet, By Mouth, Every 6 hours, PRN, for 5 days, # 12 tablet, Refills 0, Tot. Refills 0, Acute 04/04/22 23:06:00 EDT, for pain, 03/30/22 23:06:00 EDT, Route to Pharmacy Electronically, [facility], Partial fill upon patien... Start Date: 03/30/22 Stop Date: 04/04/22 Status: Ordered OxyCODONE IR Tablet 10 mg, Tablet, By Mouth, Every 3 hours, PRN for Pain , Severe, Routine, 03/30/22 17:55:00 EDT Start Date: 03/30/22 Stop Date: 04/06/22 Status: Ordered Toradol Inj 15 mg, Injection, IV Push Slowly, 03/31/22 11:00:00 EDT, Stop date 03/31/22 11:00:00 EDT Start Date: 03/31/22 Stop Date: 03/31/22 Status: Completed Toradol Inj 15 mg, Injection, IV Push Slowly, 03/31/22 16:00:00 EDT, Stop date 03/31/22 16:00:00 EDT Start Date: 03/31/22 Stop Date: 03/31/22 Status: Completed Problem List Condition Effective Dates Status Health Status Inform ant Anxiety(Confirmed) Active Hypertension(Confirmed) Active Pyosalpinx(Confirmed) Active Vital Signs Most recent to oldest [Reference Range]: 1 2 3 4 5 Height 167.64 cm (03/30/22 1:05 PM) 167.64 cm (03/29/22 9:24 AM) Weight 82.27 kg (03/30/22 1:05 PM) 82.27 kg (03/29/22 9:24 AM) Oxygen Saturation [94-100 %] 100 % (03/31/22 3:00 PM) 99 % (03/31/22 11:00 AM) 100 % (03/31/22 7:00 AM) Pulse Rate [55-90 bpm] 93 bpm *H* (03/31/22 3:00 PM) 99 bpm *H* (03/31/22 11:00 AM) 101 bpm *H* (03/31/22 7:00 AM) Body Mass Index [18.5-24.99] 29.27 *H* (03/30/22 1:05 PM) 29.27 *H* (03/29/22 9:24 AM) Blood Pressure [90-138/55-84 mm Hg] 111/59mm Hg (03/31/22 3:00 PM) 115/60mm Hg (03/31/22 11:00 AM) 124/74mm Hg (03/31/22 7:00 AM) Respiratory Rate [16-30 br/min] 18 br/min (03/31/22 4:32 PM) 18 br/min (03/31/22 4:32 PM) 17 br/min (03/31/22 4:32 PM) 18 br/min (03/31/22 4:32 PM) 18 br/min (03/31/22 4:32 PM) Temperature [96.8-100.4 DegF] 98.1 DegF (03/31/22 3:00 PM) 98.4 DegF (03/31/22 11:00 AM) 98.6 DegF (03/31/22 7:00 AM) Liters per Minute 2 L/min (03/30/22 6:45 PM) 2 L/min (03/30/22 6:30 PM) 3 L/min (03/30/22 6:15 PM) Mode of Delivery (Oxygen) Room air (03/31/22 3:00 PM) Room air (03/31/22 11:00 AM) Room air (03/31/22 7:00 AM) Blood pressure sites Arm, left (03/31/22 3:00 PM) Arm, left (03/31/22 11:00 AM) Arm, left (03/31/22 7:00 AM) Temperature Route Oral (03/31/22 3:00 PM) Oral (03/31/22 11:00 AM) Oral (03/31/22 7:00 AM) Dry Weight 81.7 kg (03/30/22 1:05 PM) 82.27 kg (03/29/22 9:24 AM)
--- OUTSIDE RECORDS SUMMARY | 2023-06-06 18:15 | XMS_ITS | Continuity of Care Document ---
Author Name Unknown Organization [facility] Address [address] [place] [address], [address] [place] [address]- Care Team Providers Care Transition Teacher Name Role Phone Not on Staff, PCP Primary Care Physician Unavail able [facility] Date[facility]): [facility] [address] [place] [address], [address] [place] [address]- Problem List Condition Effective Dates Status Health Status Inform ant Anxiety(Confirmed) Active Hypertension(Confirmed) Active Pyosalpinx(Confirmed) Active
--- OUTSIDE RECORDS SUMMARY | 2023-06-06 18:15 | XMS_ITS | Continuity of Care Document ---
Author Name Unknown Organization [facility] Mary barron [facility] Address [address], [address] [place] [address]- Care Team Providers Care Oyster Tonger Name Role Phone Not on Staff, PCP Primary Care Physician Unavail able Encounter [facility] Date(s): 01/06/22 - 02/05/22 [facility] Mary Duncans [facility] [address], [address] [place] [address]- Medications Ibuprofen Refills 0, Maintenance, 12/30/21 10:29:00 [...]
--- OUTSIDE RECORDS SUMMARY | 2023-06-06 18:15 | XMS_ITS | Continuity of Care Document ---
Author Name Unknown Organization [facility] Address [address], [address] [place] [address]- Care Team Providers Care Water Quality Control Engineer Name Role Phone Not on Staff, PCP Primary Care Physician Unavail able Encounter [facility] Date(s): 11/28/21 - 12/05/21 [facility] [address] [place], [place] [address] Attending Physician: Nicole Valentien MD Referring Physician: Gonzalo Mejia MD Problem List Condition Effective Dates Status Health Status Inform ant Anxiety(Confirmed) Active Hypertension(Confirmed) Active Pyosalpinx(Confirmed) Active Procedures Procedure Date Related Diagnosis Body Site Status section Complete d Right oophorectomy Comple callie Vital Signs Most recent to oldest [Reference Range]: 1 Weight 87.7 kg (11/28/21 1:17 PM) Pulse Rate [55-90 bpm] 83 bpm (11/28/21 1:17 PM) Blood Pressure [90-138/55-84 mm Hg] 130/ 90mm Hg (11/28/21 1:17 PM) Respiratory Rate [16-30 br/min] 21 br/mi n (11/28/21 1:17 PM) Blood pressure sites Arm, left (11/28/21 1:17 PM) Weight Obtained Via Standing scale (11/28/21 1:17 PM)
== END 2023-06-06 19:11 | disposition home or self-care (01) ==
PROVIDERS: Emergency Provider Emergency Medicine
DX: S83.92XA Sprain of unspecified site of left knee, initial encounter (principal); M43.16 Spondylolisthesis, lumbar region; M25.562 Pain in left knee; M25.561 Pain in right knee; W10.9XXA Fall (on) (from) unspecified stairs and steps, initial encounter; Y93.9 Activity, unspecified; Y92.9 Unspecified place or not applicable; Y99.0 Civilian activity done for income or pay
CPT/HCPCS: 72100; 73562; 99282; 99283

== ENCOUNTER 2023-06-14 10:30 | Outpatient (REF) | payer OTHER, SELFPAY ==
[2023-06-14 14:33] LABS: MANUAL DIFF FLAG NO
[2023-06-14 14:39] LABS: Basophils Percent Auto 0.6 % (0-2); Eosinophils Absolute Auto 0.5 X10*3/uL (0.0-0.4); Hematocrit 38.2 % (37.0-47.0); Hemoglobin 12.3 g/dl (12.0-16.0); Imm Gran Abs Auto 0.02 X10*3/uL (0.00-0.03); Imm Gran Pct Auto 0.3 % (0.0-0.4); Lymphocytes Absolute Auto 2.5 X10*3/uL (1.2-4.9); Lymphocytes Percent Auto 39.5 % (20-40); Mean Corpuscular HGB Conc 32.2 g/dl (31.0-35.0); Mean Corpuscular Hemoglobin 29.7 pg (27.0-33.0); Mean Corpuscular Volume 92.3 fL (80.0-98.0); Monocytes Absolute Auto 0.5 X10*3/uL (0.1-1.2); Monocytes Percent Auto 7.1 % (2-11); Neutrophils Absolute Auto 2.8 x10*3/uL (2.0-8.3); Neutrophils Percent Auto 44.5 % (45-73); Platelet Count 288 X10*3/uL (160-400); Red Blood Count 4.14 X10*6/uL (4.20-5.50); Red Cell Distribution Width 13.4 % (11.0-16.0); White Blood Count 6.4 X10*3/uL (4.8-10.8)
[2023-06-14 15:11] LABS: Estimated Average Glucose 108 mg/dL; Hemoglobin A1c % 5.4 % (<6.0)
[2023-06-14 15:33] LABS: Alanine Aminotransferase 15 U/L (0-31); Albumin Level 4.1 g/dL (3.5-5.0); Alkaline Phosphatase 61 U/L (39-117); Anion Gap 9 (12-20); Aspartate Amino Transferase 16 U/L (5-31); Bilirubin Total 0.5 mg/dL (0.0-1.0); Blood Urea Nitrogen 13 mg/dL (9-16); Carbon Dioxide 28 mmol/L (22-29); Chloride 104 mmol/L (96-108); Cholesterol 243 mg/dL (<200); Estimated Glomerular Filt Rate > 60; Glucose Fasting 81 mg/dL (60-99); HDL Cholesterol 47 mg/dL (>40); LDL Cholesterol Calculated 157 mg/dL (<100); Potassium 4.2 mmol/L (3.3-5.1); Sodium 137 mmol/L (135-145); Total Protein 7.2 g/dL (6.5-8.0); Triglycerides 197 mg/dL (<150)
[2023-06-14 15:59] LABS: TSH reflex Free T4 1.24 uIU/mL (0.32-4.0)
[2023-06-15 03:58] LABS: ~HepC Num1 0.17 S/CO (0.00-0.79); ~Hepatitis C Antibody Nonreactive (Nonreactive)
[2023-06-17 18:39] LABS: HIV RNA PCR Qn Copies Not Detected Copies/mL; HIV RNA PCR Qn Log Copies Not Detected Log cps/mL
== END 2023-06-14 10:31 | disposition home or self-care (01) ==
LOC: CF 10:30
PROVIDERS: Visit Provider Internal Medicine
DX: I10 Essential (primary) hypertension (principal); E66.9 Obesity, unspecified; Z11.3 Encounter for screening for infections with a predominantly sexual mode of transmission
CPT/HCPCS: 36415; 80053; 80061; 83036; 84443; 85025; 86803; 87536; 87900

== ENCOUNTER → 2023-12-19 14:38 | Outpatient (BNVA) | payer SELFPAY | PROVIDERS: Visit Provider Physician Assistant | DX: Z02.79 Encounter for issue of other medical certificate (principal) ==

== ENCOUNTER 2024-01-01 09:44 | Outpatient (REF) | payer MEDICAID, SELFPAY ==
[2024-01-01 14:58] LABS: Alanine Aminotransferase 21 U/L (0-31); Albumin Level 4.3 g/dL (3.5-5.0); Alkaline Phosphatase 67 U/L (39-117); Anion Gap 12 (12-20); Aspartate Amino Transferase 19 U/L (5-31); Bilirubin Total 0.5 mg/dL (0.0-1.0); Blood Urea Nitrogen 15 mg/dL (9-16); Calcium 9.9 mg/dL (8.4-10.2); Carbon Dioxide 29 mmol/L (22-29); Chloride 104 mmol/L (96-108); Estimated Glomerular Filt Rate > 60; Glucose Random 65 mg/dL (60-115); Potassium 4.5 mmol/L (3.3-5.1); Sodium 140 mmol/L (135-145); Total Protein 7.7 g/dL (6.5-8.0)
== END 2024-01-01 09:45 | disposition home or self-care (01) ==
LOC: HO.CHCLDS 09:44
PROVIDERS: Visit Provider Internal Medicine
DX: R31.21 Asymptomatic microscopic hematuria (principal)
CPT/HCPCS: 36415; 80053

== ENCOUNTER 2024-01-28 15:47 | Outpatient (REF) | payer MEDICAID, SELFPAY ==
[2024-01-28 17:20] LABS: Urine Cytology See Pathology rpt
== END 2024-01-28 15:48 | disposition home or self-care (01) ==
LOC: HO.CHCLNP 15:47
PROVIDERS: Visit Provider Internal Medicine
DX: R31.21 Asymptomatic microscopic hematuria (principal)
CPT/HCPCS: 88112

== ENCOUNTER 2024-02-13 13:52 | Outpatient (REF) | payer MEDICAID, SELFPAY ==
--- NOTE | ~2024-02-13 | US_ITS ---
EXAMINATION: US RETROPERITONEAL LIMITED (RENAL ONLY) CLINICAL INFORMATION: Microscopic hematuria. COMPARISON: None available. TECHNIQUE: Real-time imaging of the kidneys. FINDINGS: RIGHT KIDNEY: 11.6 x 4.8 x 4.9 cm (SAG x AP x TRV). The kidney is normal in size, contour, and echogenicity. Renal cortical thickness is normal. No calculi or focal parenchymal lesions. No hydronephrosis. LEFT KIDNEY: 10.2 x 6.0 x 5.50 cm (SAG x AP x TRV). The kidney is normal in size, contour, and echogenicity. Renal cortical thickness is normal. No calculi or focal parenchymal lesions. No hydronephrosis. ADDITIONAL FINDINGS: Incidental note of a 1.8 x 2.1 x 1.9 cm well-circumscribed round lesion in the right lobe of the liver with mixed echogenicity, primarily hypoechoic, partly echogenic.? Hemangioma. MRI scan could be obtained for further evaluation. US/US renal BI IMPRESSION: 1. Normal appearance of the kidneys. 2. 2.1 cm well-circumscribed round lesion in the right lobe of the liver. MRI scan could be obtained for further evaluation.
== END 2024-02-13 13:53 | disposition home or self-care (01) ==
LOC: HO.US 13:52
PROVIDERS: PCP Internal Medicine; Visit Provider Internal Medicine
DX: R31.9 Hematuria, unspecified (principal)
CPT/HCPCS: 76775

== ENCOUNTER 2024-04-03 11:00 | Outpatient (REF) | payer MEDICAID, SELFPAY ==
--- NOTE | ~2024-04-03 | MR_ITS ---
EXAMINATION: MR ABDOMEN WITHOUT AND WITH CONTRAST CLINICAL INFORMATION: Incidental liver lesion, question hemangioma COMPARISON: Renal ultrasound 02/13/2024 TECHNIQUE: MRI of the abdomen before and after the IV administration of 10 mL of Gadavist was obtained using routine sequences. FINDINGS: LUNG BASES: The visualized lung bases are unremarkable. KIDNEYS AND URETERS: Bosniak 1 renal cysts, no follow-up imaging recommended. GALLBLADDER: Unremarkable. LIVER AND BILIARY TREE: Several simple hepatic cysts. Marked loss of signal on opposed phase imaging compatible with hepatic steatosis with few regions of fatty sparing and relative hyperenhancement some of which appear geographic for example along the gallbladder fossa though some appear slightly more discrete for example on the posterior right hepatic lobe, 100:62, still favored to reflect fatty sparing. There is a 1.9 cm arterially hyperenhancing liver lesion in the right hepatic lobe with persistent delayed enhancement and a subtle T2 hyperintense central scar. Liver is mildly enlarged measuring 19.1 cm in span. No intra or extrahepatic biliary duct dilatation. PANCREAS: Unremarkable SPLEEN: Unremarkable ADRENAL GLANDS: Unremarkable GASTROINTESTINAL TRACT: Unremarkable. LYMPH NODES: No lymphadenopathy. VASCULAR: Unremarkable ABDOMINAL WALL: Unremarkable. OSSEOUS STRUCTURES: Unremarkable. MR/MR abdomen wo/w con IMPRESSION: 1. A 1.9 cm arterially hyperenhancing liver lesion in the right hepatic lobe with persistent delayed enhancement and a subtle T2 hyperintense central scar. Findings are favored to reflect a focal nodular hyperplasia, however given the background of underlying liver disease recommended follow-up MR with Eovist in 3-6 months to assess stability and for definitive characterization. 2. Marked hepatic steatosis with few regions of fatty sparing, some of which appear geographic, though some appear slightly more discrete though are still favored to reflect fatty sparing, however recommend attention on the above recommended follow-up MR.
[2024-04-03] MEDS: gadobutroL 10 ML VIAL IVPUSH (12:24)
== END 2024-04-03 11:01 | disposition home or self-care (01) ==
LOC: HO.MRI 11:00
PROVIDERS: PCP Internal Medicine; Visit Provider Internal Medicine
DX: D18.03 Hemangioma of intra-abdominal structures (principal)
CPT/HCPCS: 74183; A9585

== ENCOUNTER 2024-07-09 13:40 | Outpatient (REF) | payer MEDICAID, SELFPAY ==
[2024-07-09 14:13] LABS: MANUAL DIFF FLAG NO
[2024-07-09 14:31] LABS: Basophils Absolute Auto 0.1 X10*3/uL (0.0-0.2); Basophils Percent Auto 0.7 % (0-2); Eosinophils Absolute Auto 0.5 X10*3/uL (0.0-0.4); Eosinophils Percent Auto 6.6 % (0-4); Hematocrit 37.9 % (37.0-47.0); Hemoglobin 12.9 g/dl (12.0-16.0); Imm Gran Abs Auto 0.02 X10*3/uL (0.00-0.03); Imm Gran Pct Auto 0.2 % (0.0-0.4); Lymphocytes Absolute Auto 3.4 X10*3/uL (1.2-4.9); Lymphocytes Percent Auto 41.5 % (20-40); Mean Corpuscular Hemoglobin 30.4 pg (27.0-33.0); Mean Corpuscular Volume 89.4 fL (80.0-98.0); Mean Platelet Volume 10.5 fL (9.4-12.3); Monocytes Absolute Auto 0.5 X10*3/uL (0.1-1.2); Monocytes Percent Auto 6.4 % (2-11); Neutrophils Absolute Auto 3.6 x10*3/uL (2.0-8.3); Neutrophils Percent Auto 44.6 % (45-73); Platelet Count 333 X10*3/uL (160-400); Red Blood Count 4.24 X10*6/uL (4.20-5.50); Red Cell Distribution Width 12.8 % (11.0-16.0); White Blood Count 8.1 X10*3/uL (4.8-10.8)
[2024-07-09 14:44] LABS: Alanine Aminotransferase 24 U/L (0-31); Albumin Level 4.2 g/dL (3.5-5.0); Alkaline Phosphatase 71 U/L (39-117); Anion Gap 10 (12-20); Aspartate Amino Transferase 23 U/L (5-31); Bilirubin Total 0.6 mg/dL (0.0-1.0); Blood Urea Nitrogen 10 mg/dL (9-16); Calcium 10.1 mg/dL (8.4-10.2); Carbon Dioxide 28 mmol/L (22-29); Chloride 104 mmol/L (96-108); Cholesterol 243 mg/dL (<200); Estimated Glomerular Filt Rate > 60; Glucose Random 86 mg/dL (60-115); HDL Cholesterol 39 mg/dL (>40); LDL Cholesterol Calculated 163 mg/dL (<100); Potassium 3.9 mmol/L (3.3-5.1); Sodium 138 mmol/L (135-145); Total Protein 7.7 g/dL (6.5-8.0); Triglycerides 209 mg/dL (<150)
== END 2024-07-09 13:41 | disposition home or self-care (01) ==
LOC: HO.CHCLDS 13:40
PROVIDERS: Visit Provider Internal Medicine
DX: I10 Essential (primary) hypertension (principal)
CPT/HCPCS: 36415; 80053; 80061; 85025

== ENCOUNTER → 2024-08-11 16:39 | Outpatient (BNV) | payer MEDICAID, SELFPAY | PROVIDERS: PCP Internal Medicine; Visit Provider Radiology Diagnostic Radiology | DX: M47.814 Spondylosis without myelopathy or radiculopathy, thoracic region (principal) | CPT/HCPCS: 72146 ==

== ENCOUNTER 2024-08-11 16:40 | Outpatient (REF) | payer MEDICAID, SELFPAY ==
--- NOTE | ~2024-08-11 | MR_ITS ---
FINDINGS: MR THORACIC SPINE WITH CONTRAST CLINICAL INFORMATION: Chronic midline thoracic pain. 34-year-old female. COMPARISON: None TECHNIQUE: Multiplanar multisequence MR imaging of the thoracic spine was done following the administration of mL . FINDINGS: ALIGNMENT: -Normal kyphosis. No scoliosis. -Normal alignment without subluxation. VERTEBRAL BODIES AND BONE MARROW: -No compression deformities. -There are scattered Schmorl's nodes within the endplates of T7-8, and T10-11. -No gross bone marrow edema or abnormal infiltrating bone marrow signal. -Mild fatty type endplate changes present at T10-T11. DISCS: -Mild loss of disc height and signal T7-T8 and T11-12, and mild to moderate loss T10-T11. -Remainder the intervertebral discs are normal. SPINAL CORD: -Mild ventral cord flattening on the right at T10-11 as detailed below. No signal abnormality. -Otherwise, the imaged cord is normal in caliber and signal throughout. PARASPINAL SOFT TISSUES: -There is a tiny cyst in the lateral left kidney. -Normal in appearance. AXIAL DISC SPACE LEVELS: C6-7: Only seen sagittally and incompletely imaged is left paramedial and lateral extrusion of disc material with cephalad migration, and extension into the left foraminal zone. This results in mild central canal narrowing without cord impingement or contact, mild left lateral recess narrowing, and mild to moderate left neural foraminal narrowing. C7-T1: Normal. T1-T2: Shallow diffuse disc bulge present, more prominent left lateral, with extension into the left greater than right foraminal zones. No significant central canal narrowing. Mild bilateral neural foraminal narrowing. Normal facets. T2-T3: Normal. T3-T4: Normal. T4-T5: Normal. T5-T6: Normal. T6-T7: Minimal shallow disc bulge present, no significant mass effect. No central canal or neural foraminal stenosis. T7-T8: Right paracentral disc protrusion is present, minimally indenting on the ventral thecal sac, and minimally indenting upon the right ventral cord without significant cord flattening, impingement, or signal abnormality. This is best seen on (series 16, image 8). There is mild bilateral mild facet degeneration. T8-T9: Mild bilateral facet degeneration. Otherwise normal. T9-T10: Mild bilateral facet degeneration. Otherwise normal. T10-T11: Right paracentral and lateral protrusion of disc material, minimally indenting upon the right ventral thecal sac, and minimally indenting on the right ventral cord. No cord impingement, or signal abnormality. Preserved CSF signal surrounding the cord. Mild bilateral facet degeneration. T11-T12: Normal. T12-L1: Mild bilateral facet degeneration. Otherwise normal. MR/MR thoracic spine wo con IMPRESSION: 1. Mild spondylosis of the thoracic spine, relatively confined to C6-C7, T7-T8, and T10-T11 as detailed above. Mild right ventral cord flattening and T7-T8, and T10-T11 without dot impingement. No gross cord impingement or signal abnormality. 2. No gross compression deformity, bone marrow edema, or abnormal infiltrating bone marrow signal. Additional ancillary findings as discussed. Electronically signed by: Jc Pacheco MD 10/07/2024 10:37 AM [facility]OC[facility] THAKUR
== END 2024-08-11 16:41 | disposition home or self-care (01) ==
LOC: HO.MRI 16:40
PROVIDERS: PCP Internal Medicine; Visit Provider Internal Medicine
DX: M54.6 Pain in thoracic spine (principal); G89.29 Other chronic pain
CPT/HCPCS: 72146

== ENCOUNTER 2024-11-21 09:16 | Outpatient (REF) | payer MEDICAID, SELFPAY ==
--- OUTSIDE RECORDS SUMMARY | 2024-11-21 09:44 | XMS_ITS | Encounter Summary ---
Author Organization [employer] Address [address] [facility] [address] [place] [address] Care Team Providers Care Glass Mechanic Name Role Phone Maurice Flores MD Primary Care Prov ider Reason for Visit * Reason Comments Med Refill Encounter Details Date Type Department Care Team ([facility] Contact Info) Description 10/24/2022 Refill [facility] MEDICINE [address] [place] [address] Maurice Flores MD [address] [place], [place] [phone] Social History Tobacco Use Types Packs/Day Years Used Date Smoking Tobacco: Never Smokeless Tobacco: Never Comments Unknown Sex and Gender Information Value Date Recorded Sex Assigned at Female 08/21/2022 10:36 AM EDT Legal Sex Female 10:36 AM EDT Gender Identity Female 08/21/2022 10:36 AM EDT Sexual Orientation Straight 08/21/2022 10 :36 AM EDT COVID-19 Exposure Response Date Recorded In the last 10 days, have yo u been in contact with someone who was confirmed or suspected to have Coronavirus/COVID-19? No / Unsure 10/13/2022 12:49 PM EST documented as of this encounter Plan of Treatment Upcoming Encounters Date Type Department Care Team ([facility] Contact Info) Description 01/16/2025 9:30 AM EDT Telemedicine [facility] CH[facility] MED & PEDS [address] [place], [place] [phone] Maurice Flores MD [address] [place], [place] [phone] documented as of this encounter Visit Diagnoses Not on filedocumented in this encounter Care Teams Glass Mechanic Relationship Specialty Start Date End Date Maurice Flores MD [address] [place] [id number] PCP - General Internal Medicine 08/25/19 documented as of this encounter
--- OUTSIDE RECORDS SUMMARY | 2024-11-21 09:44 | XMS_ITS | Encounter Summary ---
Author Organization [employer] Address [address] [facility] [address] [place] [address] Care Team Providers Care Remelt Worker Name Role Phone Maurice Flores MD Primary Care Prov ider Encounter Details Date Type Department Care Team ([facility] Contact Info) Description 07/16/2023 Orders Only [facility] MEDICINE [address] [place] [address] Beti Schwarz Social History Tobacco Use Types Packs/Day Years Used Date Smoking Tobacco: Never Smokeless Tobacco: Never Alcohol Use Standard Drinks/Week Comments Never 0 (1 standard drink = 0.6 oz pur e alcohol) Depression Answer Date Recorded Patient Health Questionnaire-9 Score 0 06/13/2023 Depression Answer Date Recorded Patient Health Questionnaire-2 Score 0 06/13/2023 Comments Unknown Sex and Gender Information Value Date Recorded Sex Assigned at Female 08/21/2022 10:36 AM EDT Legal Sex Female 10:36 AM EDT Gender Identity Female 08/21/2022 10:36 AM EDT Sexual Orientation Straight 08/21/2022 10 :36 AM EDT documented as of this encounter Plan of Treatment Upcoming Encounters Date Type Department Care Team (Late Contact Info) Description 01/16/2025 9:30 AM EDT Telemedicine [facility] CHC MED & PEDS [address] [place], [place] [phone] Maurice Flores MD [address] [place] [address] documented as of this encounter Procedures Procedure Name Priority Date/Time Associated Diagnosis Comments PATHOLOGY REPORT Routine 01/28/2024 1:42 PM EDT HM PAP/HPV Routine 11/23/2021 12:00 AM EST documented in this encounter Results * Enter charges (01/28/2024 1:42 PM EDT) 01/28/2024 1:42 PM EDT 01/29/2024 11:20 AM EDT [facility] - 02/04/2024 2:36 PM EDT ----- ------- Name: Beth Shore ? Age/Sex: 33/F ? : 1990 Unit#: [id number] ?? Attend Dr: Maurice Flores MD ??Re01/28/24 ?Status: DEP REF ? Location: HO.CHCLNP ? Disch: ? ----- ------- SPEC : [id number] ? RECD: 01/29/24-1119 ? STATUS: ??SOUT ? REQ NUM: [id number] ? JESU: 01/28/24-1342 ? SUBM DR: Maurice Flores MD ENTERED: ??01/30/24 ?SP TYPE: Cytology ? OTHR : ? ORDERED: ??Cyto-enhanced ? Diagnosis ?? Urine: ??Negative for high-grade urothelial carcinoma. ? COMMENT: ??Examination of a monolayer preparation slide shows many superficial benign ?? squamous cells with bacteria, occasional benign urothelial cells, few inflammatory cells, ?? and rare red blood cells. ?Clinical History Microscopic hematuria ? Material Received ?? Urine ? Gross Description Received are 50 cc of clear yellow fluid from which a ThinPrep slide is prepared. ----- ------- Signed (signature on file) [place] 02/04/24 0556 ? ----- ------- ? END OF REPORT ? Maurice Hill MD HISTORICAL/NON ORD ERABLE LABS Final Result Performing Organization Address City/[facility] Co de Phone Number [facility] [address] [place] [address] [phone] * Hm Pap Smear (11/23/2021 12:00 AM EST) us Historical Provider HEALTH MAINTENANCE Final Result documented in this encounter Visit Diagnoses Not on filedocumented in this encounter Additional Health Concerns Assessment Noted Time PHQ-9 Depression Total Score: 0 06/13/20 23 2:56 PM EDT documented as of this encounter Care Teams Remelt Worker Relationship Specialty Start Date End Date Maurice Flores MD [address] [place] [phone] PCP - General Internal Medicine 08/25/19 documented as of this encounter
--- OUTSIDE RECORDS SUMMARY | 2024-11-21 09:44 | XMS_ITS | Encounter Summary ---
Author Organization [employer] Address [address] [facility] [address] [place] [address] Care Team Providers Care Endless Belt Finisher Name Role Phone Maurice Flores MD Primary Care Prov ider Encounter Details Date Type Department Care Team (Latest Contact Info) Description 07/19/2022 Abstract [facility] CONVERSIONS Dental, Provider, DDS Social History Tobacco Use Types Packs/Day Years Used Date Smoking Tobacco: Never Assessed Comments Unknown Sex and Gender Information Value Date Recorded Sex Assigned at Female 08/21/2022 10:36 AM EDT Legal Sex Female 10:36 AM EDT Gender Identity Female 08/21/2022 10:36 AM EDT Sexual Orientation Straight 08/21/2022 10 :36 AM EDT documented as of this encounter Plan of Treatment Upcoming Encounters Date Type Department Care Team (Late st Contact Info) Description 01/16/2025 9:30 AM EDT Telemedicine [facility] CHC MED & PEDS [address] [place] [address] Maurice Flores MD [address] [place] [address] documented as of this encounter Visit Diagnoses Not on filedocumented in this encounter Care Teams Endless Belt Finisher Relationship Specialty Start Date End Date Maurice Flores MD [address] [place] [address] PCP - General Internal Medicine 08/25/19 documented as of this encounter
--- OUTSIDE RECORDS SUMMARY | 2024-11-21 09:44 | XMS_ITS | Encounter Summary ---
Author Organization [employer] Address [address] [facility] [address] [place] [address] Care Team Providers Care Powerhouse Electrician Apprentice Name Role Phone Maurice Flores MD Primary Care Prov ider Encounter Details Date Type Department Care Team (Latest Contact Info) Description 02/18/2021 Abstract [facility] CONVERSIONS Dental, Provider, DDS Social History [...] Info) Description 01/16/2025 9:30 AM EDT Telemedicine [facility] CHC MED & PEDS [address] [place] [address] Maurice Flores MD [address] [place] [address] documented as of this encounter Visit Diagnoses Not on filedocumented in this encounter Care Teams Powerhouse Electrician Apprentice Relationship Specialty Start Date End Date Maurice Flores MD [address] [place] [address] PCP - General Internal Medicine 08/25/19 documented as of this encounter
--- OUTSIDE RECORDS SUMMARY | 2024-11-21 09:44 | XMS_ITS | Encounter Summary ---
Author Organization [employer] Address [address] [facility] [address] [place] [address] Care Team Providers Care Wirer Passenger Car Name Role Phone Maurice Flores MD Primary Care Prov ider Encounter Details Date Type Department Care Team ([facility] Contact Info) Description 06/20/2023 Abstract [facility] ADULT DENTAL [address] [place], [place] [phone] Alma Lott DDS [address] [place], [place] [phone] Social History Tobacco Use Types Packs/Day Years [...] Info) Description 01/16/2025 9:30 AM EDT Telemedicine [facility] MED & PEDS [address] [place], [place] [phone] Maurice Flores MD [address] [place], [place] [phone] documented as of this encounter Visit Diagnoses Not on filedocumented in this encounter Additional Health Concerns Assessment Noted Time PHQ-9 Depression Total Score: 0 06/13/20 23 2:56 PM EDT documented as of this encounter Care Teams Wirer Passenger Car Relationship Specialty Start Date End Date Maurice Flores MD [address] [place] [address] PCP - General Internal Medicine 08/25/19 documented as of this encounter
--- OUTSIDE RECORDS SUMMARY | 2024-11-21 09:44 | XMS_ITS | Encounter Summary ---
Author Organization [employer] Address [address] [facility] [address] [place] [address] Care Team Providers Care Rn Bariatric Name Role Phone Maurice Flores MD Primary Care Prov ider Encounter Details Date Type Department Care Team (Latest Contact Info) Description 07/01/2019 Abstract [facility] CONVERSIONS Dental, Provider, DDS Social History [...] Info) Description 01/16/2025 9:30 AM EDT Telemedicine [facility] CHC MED & PEDS [address] [place] [address] Maurice Flores MD [address] [place] [address] documented as of this encounter Visit Diagnoses Not on filedocumented in this encounter Care Teams Rn Bariatric Relationship Specialty Start Date End Date Maurice Flores MD [address] [place] [address] PCP - General Internal Medicine 08/25/19 documented as of this encounter
--- OUTSIDE RECORDS SUMMARY | 2024-11-21 09:44 | XMS_ITS | Encounter Summary ---
Author Organization [employer] Address [address] [facility] [address] [place] [address] Care Team Providers Care Library Acquisitions Technician Name Role Phone Maurice Flores MD Primary Care Prov ider Reason for Visit * Reason Onset Date Comments appt 07/22/2024 Encounter Details Date Type Department Care Team (Late Contact Info) Description 07/22/2024 Telephone [facility] ADULT DENTAL [address] [place], [place] [phone] Domenico Killian [address] [place] [address] appt Social History Tobacco Use Types Packs/Day Years Used Date Smoking Tobacco: Never Smokeless Tobacco: Never Alcohol Use Standard Drinks/Week Comments Never 0 (1 standard drink = 0.6 oz pur e alcohol) Depression Answer Date Recorded Patient Health Questionnaire-9 Score 0 06/13/2023 Housing Stability Answer Date Recorded What is your housing situation today? I have zara miguel 08/06/[address] you li ve. Do you have problems with any of the following? None of the above 08/06/2023 Food Insecurity Answer Date Recorded Within the past 12 months, y ou worried that your food would run out before you got money to buy more: Never True 08/06/2023 Within the past 12 months,th e food you bought just didn't last and you didn't have enough money to get more: Never True Transportation Answer Date Recorded In the past 12 months, has l ack of transportation kept you from medical appts, meetings, work or from getting things needed for daily living? No 08/06/2023 Utilities Answer Date Recorded In the past 12 months, has t he electric, gas, oil or water company threatened to shut off services in your home? No 08/06/2023 Depression Answer Date Recorded Patient Health Questionnaire-2 Score 1 06/19/2024 Comments Unknown Sex and Gender Information Value Date Recorded Sex Assigned at Female 08/21/2022 10:36 AM EDT Legal Sex Female 10:36 AM EDT Gender Identity Female 08/21/2022 10:36 AM EDT Sexual Orientation Straight 08/21/2022 10 :36 AM EDT documented as of this encounter Miscellaneous Notes * Telephone Encounter - Dorie Hargrove - 07/22/2024 2:55 PM EDT Patient reached out to office to schedule next appt. Notes indicate further treatment needed. No indication of treament time. hotel front desk clerk is confirming with provider tx time for appt and will reach out to office for scheduling DR documented in this encounter Plan of Treatment Upcoming Encounters Date Type Department Care Team (Late st Contact Info) Description 01/16/2025 9:30 AM EDT Telemedicine [facility] MED & PEDS [address] [place] [address] Maurice Flores MD [address] [place] [address] documented as of this encounter Visit Diagnoses Not on filedocumented in this encounter Additional Health Concerns Assessment Noted Time PHQ-9 Depression Total Score: 0 06/13/20 23 2:56 PM EDT documented as of this encounter Care Teams Library Acquisitions Technician Relationship Specialty Start Date End Date Maurice Flores MD [address] [place] [address] PCP - General Internal Medicine 08/25/19 documented as of this encounter
--- OUTSIDE RECORDS SUMMARY | 2024-11-21 09:44 | XMS_ITS | Encounter Summary ---
Author Organization [employer] Address [address] [facility] [address] [place] [address] Care Team Providers Care Batteryman Name Role Phone Maurice Flores MD Primary Care Prov ider Encounter Details Date Type Department Care Team ([facility] Contact Info) Description 06/20/2023 Abstract [facility] ADULT DENTAL [address] [place], [place] [phone] Alma Lott DDS [address] [place], [place] [phone] Social History Tobacco Use Types Packs/Day Years [...] Info) Description 01/16/2025 9:30 AM EDT Telemedicine [facility] MED & PEDS [address] [place], [place] [phone] Maurice Flores MD [address] [place], [place] [phone] documented as of this encounter Visit Diagnoses Not on filedocumented in this encounter Additional Health Concerns Assessment Noted Time PHQ-9 Depression Total Score: 0 06/13/20 23 2:56 PM EDT documented as of this encounter Care Teams Batteryman Relationship Specialty Start Date End Date Maurice Flores MD [address] [place] [address] PCP - General Internal Medicine 08/25/19 documented as of this encounter
--- OUTSIDE RECORDS SUMMARY | 2024-11-21 09:44 | XMS_ITS | Encounter Summary ---
Author Organization [employer] Address [address] [facility] [address] [place] [address] Care Team Providers Care Carbide Tool Maker Name Role Phone Maurice Flores MD Primary Care Prov ider Reason for Visit * Reason Onset Date Comments mri abdomen 11/11/2024 Encounter Details Date Type Department Care Team (Late Contact Info) Description 11/11/2024 Telephone [facility] [address] [place] [address] Maurice Flores MD [address] [place], [place] [phone] mri abdomen Social History Tobacco Use Types Packs/Day Years [...] encounter Miscellaneous Notes * Telephone Encounter - Nora Zavala - 11/11/2024 1:10 PM EST Incoming fax from [facility], MRI ABDOMEN has to be W/WO CONTRAST. Please update. Thank you documented in this encounter Plan of Treatment Upcoming Encounters Date Type Department Care Team (Late st Contact Info) Description 01/16/2025 9:30 AM EDT Telemedicine [facility] MED & PEDS [address] [place] [address] Maurice Flores MD [address] [place] [address] documented as of this encounter Visit Diagnoses Not on filedocumented in this encounter Additional Health Concerns Assessment Noted Time PHQ-9 Depression Total Score: 0 06/13/20 23 2:56 PM EDT documented as of this encounter Care Teams Carbide Tool Maker Relationship Specialty Start Date End Date Maurice Flores MD [address] [place] [address] PCP - General Internal Medicine 08/25/19 documented as of this encounter
--- OUTSIDE RECORDS SUMMARY | 2024-11-21 09:45 | XMS_ITS | Encounter Summary ---
Author Organization [employer] Address [address] [place] [address] Care Team Providers Care Continuous Absorption Process Operator Name Role Phone Maurice Flores MD Primary Care Prov ider Encounter Details Date Type Department Care Team (Latest Contact Info) Description 11/19/2024 Travel Social History Tobacco Use Types Packs/Day Years Used Date Smoking Tobacco: Never Smokeless Tobacco: Never Alcohol Use Standard Drinks/Week Comments Never 0 (1 standard drink = 0.6 oz pur e alcohol) Depression Answer Date Recorded Patient Health Questionnaire-9 Score 0 06/13/2023 Housing Stability Answer Date Recorded What is your housing situation today? I have zara lamont 11/19/[address] you li ve. Do you have problems with any of the following? None of the above 11/19/2024 Food Insecurity Answer Date Recorded Within the past 12 months, y ou worried that your food would run out before you got money to buy more: Never True 11/19/2024 Within the past 12 months,th e food you bought just didn't last and you didn't have enough money to get more: Never True Transportation Answer Date Recorded In the past 12 months, has l ack of transportation kept you from medical appts, meetings, work or from getting things needed for daily living? No 11/19/2024 Utilities Answer Date Recorded In the past 12 months, has t he electric, gas, oil or water company threatened to shut off services in your home? No 11/19/2024 Depression Answer Date Recorded Patient Health Questionnaire-2 Score 1 06/19/2024 Internet Access Answer Date Recorded Internet Access Q1 Yes 11/19/2024 Internet Access Q2 Not on file 11/19/2024 Comments Unknown Sex and Gender Information Value Date Recorded Sex Assigned at Female 08/21/2022 10:36 AM EDT Legal Sex Female 10:36 AM EDT Gender Identity Female 08/21/2022 10:36 AM EDT Sexual Orientation Straight 08/21/2022 10 :36 AM EDT documented as of this encounter Plan of Treatment Upcoming Encounters Date Type Department Care Team (Late st Contact Info) Description 01/16/2025 9:30 AM EDT Telemedicine [facility] [address] [place] [address] Maurice Flores MD [address] [place] [address] documented as of this encounter Visit Diagnoses Not on filedocumented in this encounter Additional Health Concerns Assessment Noted Time PHQ-9 Depression Total Score: 0 06/13/20 23 2:56 PM EDT documented as of this encounter Care Teams Continuous Absorption Process Operator Relationship Specialty Start Date End Date Maurice Flores MD [address] [place] [address] PCP - General Internal Medicine 08/25/19 documented as of this encounter
--- OUTSIDE RECORDS SUMMARY | 2024-11-21 09:45 | XMS_ITS | Encounter Summary ---
Author Organization [employer] Address [address] [place] [address] Care Team Providers Care Broadcast Operations Technician Name Role Phone Maurice Flores MD Primary Care Prov ider Reason for Visit * Reason Onset Date Comments Results 10/31/2024 Encounter Details Date Type Department Care Team ([facility] Contact Info) Description 10/31/2024 Telephone [facility] MED & PEDS [address] [place], [place] [phone] Maurice Flores MD [address] [place] [address] Results Social History Tobacco Use Types Packs/Day Years [...] encounter Miscellaneous Notes * Telephone Encounter - Zayda Lim - 10/31/2024 10:18 AM EST Patient requesting results for MRI done documented in this encounter Plan of Treatment Upcoming Encounters Date Type Department Care Team (Late st Contact Info) Description 01/16/2025 9:30 AM EDT Telemedicine [facility] MED & PEDS [address] [place] [address] Maurice Flores MD [address] [place] [address] documented as of this encounter Visit Diagnoses Not on filedocumented in this encounter Additional Health Concerns Assessment Noted Time PHQ-9 Depression Total Score: 0 06/13/20 23 2:56 PM EDT documented as of this encounter Care Teams Broadcast Operations Technician Relationship Specialty Start Date End Date Maurice Flores MD [address] [place] [address] PCP - General Internal Medicine 08/25/19 documented as of this encounter
--- OUTSIDE RECORDS SUMMARY | 2024-11-21 09:45 | XMS_ITS | Encounter Summary ---
Author Organization [employer] Address [address] [place] [address] Care Team Providers Care Tack Coverer Name Role Phone Maurice Flores MD Primary Care Prov ider Reason for Visit * Reason Onset Date Comments Appointment Request 05/02/2024 Encounter Details Date Type Department Care Team (Late Contact Info) Description 05/02/2024 Telephone [facility] [address] [place] [address] Maurice Flores MD [address] [place], [place] [phone] Appointment Request Social History Tobacco Use Types Packs/Day Years Used Date Smoking Tobacco: Never Smokeless Tobacco: Never Alcohol Use Standard Drinks/Week Comments Never 0 (1 standard drink = 0.6 oz pur e alcohol) Depression Answer Date Recorded Patient Health Questionnaire-9 Score 0 06/13/2023 Housing Stability Answer Date Recorded What is your housing situation today? I have zaramalissa miguel 08/06/[address] you [...] encounter Miscellaneous Notes * Telephone Encounter - Lesly Infante - 05/08/2024 1:58 PM EDT Tc from pt requesting a call back regarding getting a derm appt . States last visit pcp had advisedto be booked but has not heard from anyone . * Telephone Encounter - Elliott Oh - 05/07/2024 3:15 PM EDT Tc from pt calling in regards to message prior. * Telephone Encounter - Farida Naylor - 05/02/2024 10:43 AM EDT Tc from pt requesting Follow up appt with derm, Dr Marie. documented in this encounter Plan of Treatment Upcoming Encounters Date Type Department Care Team (Late st Contact Info) Description 01/16/2025 9:30 AM EDT Telemedicine [facility] MED & PEDS [address] [place] [address] Maurice Flores MD [address] [place] [address] documented as of this encounter Visit Diagnoses Not on filedocumented in this encounter Additional Health Concerns Assessment Noted Time PHQ-9 Depression Total Score: 0 06/13/20 2:56 PM EDT documented as of this encounter Care Teams Tack Coverer Relationship Specialty Start Date End Date ArredondoMaurice Sharif MD [address] [place] [id number] PCP - General Internal Medicine 08/25/19 documented as of this encounter
--- OUTSIDE RECORDS SUMMARY | 2024-11-21 09:45 | XMS_ITS | Encounter Summary ---
Author Organization [employer] Address [address], [place] [address] Care Team Providers Care Towel Distributor Name Role Phone Maurice Flores MD Primary Care Prov ider Reason for Referral * Consultation (Routine) - Closed Specialty Diagnoses / Procedures Referred By Contact Referred To Contact Chiropractic Medicine Diagnoses Chronic bilateral low back pain with right-sided sciatica Maurice Flores MD [address] [place] [address] Phone: tel: fax: [facility] [address] [place], [place] Phone: tel: fax: Referral ID Status Reason Start Date Expiration Date V isits Requested Visits Authorized [id number] Closed Specialty Services Required 11/19/2024 11/19/2025 1 1 * Imaging (Routine) - Authorized Specialty Diagnoses / Procedures Referred By Contac t Referred To Contact Radiology Diagnoses Focal nodular hyperplasia of liver Procedures MR Abdomen w/ and w/o Contrast Maurice Flores MD [address] [place] [address] Phone: tel: fax: [facility] [address] [place], [place] Phone: tel: fax: Referral ID Status Reason Start Date Expiration Date V isits Requested Visits Authorized [id number] Authorized 11/19/2024 11/19/2025 1 1 Encounter Details Date Type Department Care Team (Late st Contact Info) Description 11/19/2024 9:30 AM EST Telemedicine [facility] MED & PEDS [address] [place] [address] Maurice Flores MD [address] [place] [address] Liver hemangioma (Primary Dx); Dietary counseling; Exercise counseling; Chronic bilateral low back pain with right-sided sciatica; Focal nodular hyperplasia of liver Social History Tobacco Use Types Packs/Day Years Used Date Smoking Tobacco: Never Smokeless Tobacco: Never Alcohol Use Standard Drinks/Week Comments Never 0 (1 standard drink = 0.6 oz pur e alcohol) Depression Answer Date Recorded Patient Health Questionnaire-9 Score 0 06/13/2023 Housing Stability Answer Date Recorded What is your housing situation today? I have zara miguel 11/19/[address] you li [...] AM EDT documented as of this encounter Progress Notes * Maurice Hill MD - 11/19/2024 9:30 AM EST Subjective Patient ID: Beth Frazier is a 34 y.o. female who presents for No chief complaint on file.. Back Pain This is a chronic problem. The pain is present in the lumbar spine. The pain is moderate. The symptoms are aggravated by position. Pertinent negatives include no bladder incontinence, bowel incontinence, paresis, tingling or weakness. Review of Systems Gastrointestinal: Negative for bowel incontinence. Genitourinary: Negative for bladder incontinence. Musculoskeletal: Positive for back pain. Neurological: Negative for tingling and weakness. Objective Physical Exam Neurological: General: No focal deficit present. Mental Status: She is oriented to person, place, and time. Psychiatric: Mood and Affect: Mood normal. Behavior: Behavior normal. Assessment/Plan Problem List Items Addressed This Visit Chronic bilateral low back pain with right-sided sciatica Will refer to chiropractor, avoid heavy lifting, rest, apply cold pack, take ibuprofen as needed Liver hemangioma - Primary Will send MRI with and without contrast, will call with results Relevant Orders Comprehensive Metabolic Panel Lipid Panel, Standard Other Visit Diagnoses Dietary counseling Exercise counseling documented in this encounter Miscellaneous Notes * Assessment & Plan Note - Maurice Hill MD - 11/19/2024 9:45 AM ESTAssociated Problem(s): Chronic bilateral low back pain with right-sided sciatica Will refer to chiropractor, avoid heavy lifting, rest, apply cold pack, take ibuprofen as needed * Assessment & Plan Note - Maurice Hill MD - 11/19/2024 9:43 AM ESTAssociated Problem(s): Liver hemangioma Will send MRI with and without contrast, will call with results * Addendum Note - Maurice Hill MD - 11/19/2024 9:30 AM EST Addended by: MAURICE GRAVES on: 11/19/2024 09:50 AM Modules accepted: Orders documented in this encounter Plan of Treatment Upcoming Encounters Date Type Department Care Team (Late st Contact Info) Description 01/16/2025 9:30 AM EDT Telemedicine [facility] MED & PEDS [address] [place], [place] [phone] Maurice Flores MD [address] [place] [address] Scheduled Orders Name Type Priority Associated Diagnoses Orde r Schedule Comprehensive Metabolic Panel Lab Routine Liver hemangioma Expected: 11/19/2024 (Approximate), Expires: 11/19/2025 Lipid Panel, Standard Lab Routine Liver hemangioma Expected: 11/19/2024 (Approximate), Expires: 11/19/2025 MR Abdomen w/ and w/o Contrast Imaging Routine Focal nodular hyperplasia of liver Expected: 11/19/2024, Expires: 11/19/2025 Scheduled Referrals Name Type Priority Associated Diagnoses Order Schedule Referral to Chiropractic Outpatient Referral Routine Chronic bilateral low back pain with right-sided sciatica Expected: 11/19/2024 (Approximate), Expires: 11/19/2025 documented as of this encounter Visit Diagnoses Diagnosis Liver hemangioma- Primary Dietary counseling Dietary surveillance and counseling Exercise counseling Chronic bilateral low back pain with right-sided sciatica Focal nodular hyperplasia of liver Other specified disorders of liver documented in this encounter Additional Health Concerns Assessment Noted Time PHQ-9 Depression Total Score: 0 06/13/20 23 2:56 PM EDT documented as of this encounter Care Teams Towel Distributor Relationship Specialty Start Date End Date Maurice Flores MD [address] [place] [address] PCP - General Internal Medicine 08/25/19 documented as of this encounter
--- OUTSIDE RECORDS SUMMARY | 2024-11-21 09:45 | XMS_ITS | Encounter Summary ---
Author Organization [employer] Address [address] [place] [address] Care Team Providers Care Lease Administrator Name Role Phone Maurice Flores MD Primary Care Prov ider Reason for Visit * Reason Onset Date Comments Referral 10/31/2024 Encounter Details Date Type Department Care Team (Late st Contact Info) Description 10/31/2024 Telephone [facility] MED & PEDS [address] [place], [place] [phone] Maurice Flores MD [address] [place] [address] Referral Social History Tobacco Use Types Packs/Day Years [...] Telephone Encounter - Zayda Lim - 10/31/2024 10:15 AM EST Patient in requesting a new referral for [facility] the one pt has exp 11/28/24 documented in this encounter Plan of Treatment Upcoming Encounters Date Type Department Care Team (Late st Contact Info) Description 01/16/2025 9:30 AM EDT Telemedicine [facility] MED [facility] PEDS [address] [place] [address] Maurice Flores MD [address] [place] [address] documented as of this encounter Visit Diagnoses Not on filedocumented in this encounter Additional Health Concerns Assessment Noted Time PHQ-9 Depression Total Score: 0 06/13/20 23 2:56 PM EDT documented as of this encounter Care Teams Lease Administrator Relationship Specialty Start Date End Date Maurice Flores MD [address] [place] [address] PCP - General Internal Medicine 08/25/19 documented as of this encounter
--- OUTSIDE RECORDS SUMMARY | 2024-11-21 09:45 | XMS_ITS | Clinical Summary ---
Author Organization [employer] Address [facility] [address] [place] [address] Care Team Providers Care Engraver Set Up Operator Name Role Phone Maurice Flores MD Primary Care Prov ider Allergies No known active allergies Medications lisinopril 20 MG tablet TAKE 1 TABLET BY MOUTH EVERY MORNING 90 tablet 3 4 Active Retin-A 0.025 % creamIndications: Melasma APPLY TOPICALLY TO THE AFFECTED AREA(S) EVERY DAY AT BEDTIME 45 g 2 4 Active lidocaine (Lidoderm) 5 % patch Apply 1 patch topically Once per day. Remove & discard patch within 12 hours or as directed by MD. 30 patch 1 4 Active estradiol (Climara) 0.1 MG/24HRIndication s:Encounter for surveillance of transdermal patch hormonal contraceptive device Place 1 patch on the skin 1 (one) time per week. 12 patch 3 4 10/08/20 25 Active ibuprofen 600 MG tablet Take 1 tablet (600 mg) by mouth every 8 (eight) hours if needed for mild pain. 90 tablet 4 11/07/19 25 Active Problems Problem Noted Date Diagnosed Date Chronic midline thoracic back pain 06/19/2024 Assessment & Plan (06/19/2024 3:03 PM EDT): Patient has tried pt/chiropractice, she complains of a shooting pain down her spine, will send a MRI for evaluation Asymptomatic microscopic hematuria 03/04/2024 Assessment & Plan (03/04/2024 1:44 PM EDT): Urine cytology and kidney ultrasound were unremarkable, will continue monitoring, advised to call back if discussed symptoms appear Liver hemangioma 03/04/2024 Assessment & Plan (11/19/2024 9:43 AM EST): Will send MRI with and without contrast, will call with results Assessment & Plan (06/19/2024 3:02 PM EDT): Will repeat MRI in 4 months, currently asymptomatic Assessment & Plan (03/04/2024 1:45 PM EDT): 2.1 cm well-circumscribed round lesion in the right lobe of the liver incidentally found. MRI will be ordered for evaluation. Patient asymptomatic Chronic bilateral low back pain with right-sided sciatica 11/28/2023 Assessment & Plan (11/19/2024 9:45 AM EST): Will refer to chiropractor, avoid heavy lifting, rest, apply cold pack, take ibuprofen as needed Assessment & Plan (11/28/2023 8:26 AM EST): Patient with on-off back pain, has been doing home remedies without improvement in symptoms, no warning signs, will refer to chiropractor as requested in [address] Continue rest, avoid heavy lifting, apply ice, continue with NSaids as needed Primary hypertension 06/13/2023 Assessment & Plan (06/19/2024 3:02 PM EDT): Controlled, continue low sodium diet and exercise as tolerated, keep bp log, folllow up in 4 months Assessment & Plan (12/04/2023 11:16 PM EST): Controlled, reinforced weight loss/exercise and low sodium diet, follow up in 4 months Assessment & Plan (06/13/2023 8:48 PM EDT): Controlled, no changes will be made, reinforced low sodium diet and exercise as tolerated. New labs will be ordered. Encounter for surveillance o f transdermal patch hormonal contraceptive device 06/13/2023 Encounters Date Type Department Care Team Description 11/19/2024 9:30 AM EST Telemedicine [facility] [address] [place] [address] Maurice Flores MD Liver hemangioma (Primary Dx); Dietary counseling; Exercise counseling; Chronic bilateral low back pain with right-sided sciatica; Focal nodular hyperplasia of liver 11/19/2024 Travel 11/18/2024 Telephone [facility] [address] [place] [address] Maurice Flores MD chart prep 11/11/2024 Telephone [place] [employer] [facility] [address] [place] [address] Maurice Flores MD mri abdomen 10/31/2024 Telephone [facility] [address] [place] [address] Maurice Flores MD Results 10/31/2024 Telephone [facility] [address] [place] [address] Maurice Flores MD Referral 10/08/2024 2:00 PM EST Telemedicine [facility] [address] [place] [address] Maurice Flores MD Focal nodular hyperplasia of liver (Primary Dx); Encounter for surveillance of transdermal patch hormonal contraceptive device; Primary hypertension 10/08/2024 Travel 10/07/2024 Telephone [facility] [address] [place] [address] Maurice Flores MD chart prep 09/12/2024 Telephone [facility] [address] [place] [address] Maurice Flores MD Results 08/21/2024 Refill [facility] [address] [place] [address] Maurice Flores MD Melasma from Last 3 Months Social History Tobacco Use Types Packs/Day Years Used Date Smoking Tobacco: Never Smokeless Tobacco: Never Tobacco Cessation:Counseling Given: Not Answered Alcohol Use Standard Drinks/Week Comments Never 0 [...] Orientation Straight 08/21/2022 10 :36 AM EDT Last Filed Vital Signs Vital Sign Reading Time Taken Comments Blood Pressure 128/87 10/08/2024 2:24 PM EST Pulse 70 07/15/2024 11:00 AM EDT Temperature 36.4 ??C (97.5 ??F) 07/15/2024 11:00 AM E DT Respiratory Rate 20 07/15/2024 11:00 AM EDT Oxygen Saturation 98% 07/15/2024 11:00 AM EDT Inhaled Oxygen Concentration - - Weight 98.4 kg (217 lb) 07/15/2024 11:00 AM EDT Height 167.6 cm (5' 6 ) 07/15/2024 11:00 AM EDT Body Mass Index 35.02 07/15/2024 11:00 AM EDT Plan of Treatment Upcoming Encounters Date Type Department Care Team (Late st Contact Info) Description 01/16/2025 9:30 AM EDT Telemedicine [facility] [address] [place] [address] Maurice Flores MD [address] [place] [address] Health Maintenance Due Date Last Done Comments Family Planning (PISQ) 2004 Hepatitis A Vaccines (1 of 2 - Risk 2-dose series) 2008 COVID-19 Vaccine ( season) 2024 09/22/2021, 03/14/2021, 02/14/2021 Influenza Vaccine (#1) 2024 , 07/12/2021, 07/28/2020, Additional history exists Dental Oral Exam 12/19/2024 06/17/2024, 06/19/2023 Dental Prophylaxis 12/19/2024 06/17/2024, 10/01/2023 Dental X-Ray: Bitewings 06/18/2025 06/17/2024, 10/13 Depression Screening 06/19/2025 06/19/2024, 06/13/20 Tobacco Screening 07/21/2025 07/21/2024 Alcohol/Substance Use Screening 11/19/2025 11/19/2024 SDOH Screening 11/19/2025 11/19/2024 Cervical Cancer Screening 11/23/2026 HPV/Cotest 11/23/2026 11/23/2021, 11/23/2021 Pap Smear 11/23/2026 11/23/2021 DTaP/Tdap/Td Vaccines (8 - Td or Tdap) 04/06/2027 04/06/2017, 04/15/2003, 1993, Additional history exists Dental X-Ray: Full Mouth 06/18/2027 06/17/2024 Lipid Panel 07/09/2029 07/09/2024, 05/23, 08/11/2022, Additional history exists HIV Screening 06/14/2033 Zoster Vaccines (1 of 2) 2039 RSV Patients and Patients Aged 60 years or older (1 - 1-dose 75+ series) 2064 HIB Vaccines Completed 07/17/1990 IPV Vaccines Completed 1993, 04/21, 1989, Additional history exists Hepatitis B Vaccines Completed 10/04/2001, 05/02/2001, 04/02/2001 HPV Vaccines Completed 10/27/2019, 04/21, 02/18/2019 Hepatitis C Screening Completed 06/14/2023, 022 Meningococcal Vaccine Aged Out No cary karel eligible based on patient's age to complete this topic Pneumococcal Vaccine: Pediatrics (0 to 5 Years) and At-Risk Patients (6 to 49) Years) Aged Out No longer eligible based on patient's age to complete this topic RSV under 20 months Aged Out No longe r eligible based on patient's age to complete this topic Rotavirus Vaccines Aged Out No longer eligible based on patient's age to complete this topic Procedures Procedure Name Priority Date/Time Associated Diagnosis Comments LIPID PANEL, STANDARD Routine 07/09/2024 1:41 PM EDT Primary hypertension PROPHYLAXIS - ADULT Routine 06/17/2024 1 0:00 AM EDT DIAGNOSTIC - DIAGNOSTIC IMAGING - INTRAORAL - COMPREHENSIVE SERIES OF RADIOGRAPHIC IMAGES Routine 06/17/2024 10:00 AM EDT PERIODIC ORAL EVALUATION - ESTABLISHED PATIENT Routine 06/17/2024 10:00 AM EDT Dental calculus Encounter for dental examination HEPATITIS C ANTIBODY REFLEX Routine 06/14/2023 10:36 AM EDT Encounter for surveillance of transdermal patch hormonal contraceptive device ZZZ HISTORICAL HPV E6/E7 RFLX SEPIDEH 16 18/45 Routine 11/23/2021 3:51 PM EST HM PAP/HPV Routine 11/23/2021 12:00 AM EST from Last 3 Months or Most Recently Relevant to Health Maintenance Results * (ABNORMAL) Lipid Panel, Standard (07/09/2024 1:41 PM EDT) Triglycerides 209(H) <150 mg/dL [facility] Comment:Desirable Triglyceri de: less than 150 mg/dLBorderline High Triglyceride 150-199 mg/dLHigh Triglyceride: 200-499 mg/dLVery High Triglyceride: greater than or equal to 5OO mg/dL Cholesterol 243(H) <200 mg/dL [facility] Comment:Desirable Cholestero l: less than 200 mg/dLBorderline High Cholesterol: 200-239 mg/dLHigh Cholesterol: greater than 239 mg/dL LDL Cholesterol Calculated 163(H) <100 mg/dL [facility] Comment:Desirable LDL: less than 100 mg/dLNear Optimal/Above Optimal LDL: 110- 129 mg/dLBorderline High LDL: 130-159 mg/dLHigh LDL: 160-189 mg/dLVery High LDL: greater than or equal to 190 mg/dL HDL Cholesterol 39(L) >40 mg/dL [facility] Comment:Desirable HDL: great er than 40 mg/dL Note: This HDL assay may give artificially low results in patients with liver disease. Blood Venous blood specimen / Unknown 07/09/2024 1:41 PM EDT 07/09/2024 2:13 PM EDT us Maurice Hill MD LAB BLOOD ORDERABL ES Final Result Performing Organization Address City/[facility]/ZIP Co de Phone Number [facility] [address] [place] [phone] * Hepatitis C Antibody Reflex (06/14/2023 10:36 AM EDT) Hepatitis C Antibody Nonreactive Nonreactive [facility] Comment:Antibodies to HCV no t detected; does not exclude early acuteHCV infection. 06/14/2023 10:3 6 AM EDT 06/14/2023 2:25 PM EDT Maurice Hill MD LAB BLOOD ORDERABL ES Final Result Performing Organization Address City/[facility]/ZIP Co de Phone Number [facility] [address] [place] [phone] * HPV E6/E7 RFLX SEPIDEH 16 18/45 (11/23/2021 3:51 PM EST) HPV mRNA E6/E7 rflx Not Detected Not Detected [facility] Comment: Methodology: Flotation Tender-Mediated Amplification This assay detects E6/E7 viral messenger RNA (mRNA) from 14 high-risk HPV types (16,18,31,33,35,39,45,51,52,56,58,59,66,68). The analytical performance characteristics of this assay have been determined by [employer]. The modifications have not been cleared or approved by the FDA. This assay has been validated pursuant to the CLIA regulations and is used for clinical purposes. For additional information, please refer to http://education.Drivy/faq/QPX866c0 (This link if provided for information/ educational purposes only.) THIS TEST WAS PERFORMED AT: [employer] [address] [place] [address],[address] [place], [place] ??[phone] OSEAS DE LA O MD 11/23/2021 3:51 PM EST Faye Florian HISTORICAL/NON ORDERABLE LABS Fi nal Result [facility] [address] * Hm Pap Smear (11/23/2021 12:00 AM EST) Historical Provider HEALTH MAINTENANCE Final Result from Last 3 Months or Most Recently Relevant to Health Maintenance [facility] MEDICA[facility] STAND ADULT Care Teams Engraver Set Up Operator Relationship Specialty Start Date End Date Maurice Flores MD [address] [place] [phone] PCP - General Internal Medicine 08/25/19
--- OUTSIDE RECORDS SUMMARY | 2024-11-21 09:45 | XMS_ITS | Encounter Summary ---
Author Organization [employer] Address [address] [facility] [address] [place] [address] Care Team Providers Care Used Car Lot Attendant Name Role Phone Maurice Flores MD Primary Care Prov ider Reason for Visit * Reason Onset Date Comments chart prep 11/18/2024 Encounter Details Date Type Department Care Team ([facility] Contact Info) Description 11/18/2024 Telephone [facility] [address] [place], [place] [phone] Maurice Flores MD [address] [place] [address] chart prep Social History Tobacco Use Types Packs/Day Years Used Date Smoking Tobacco: Never Smokeless Tobacco: Never Alcohol Use Standard Drinks/Week Comments Never 0 (1 standard drink = 0.6 oz pur e alcohol) Depression Answer Date Recorded Patient Health Questionnaire-9 Score 0 06/13/2023 Housing Stability Answer Date Recorded What is your housing situation today? I have zaramalissa miguel 11/19/[address] you [...] encounter Miscellaneous Notes * Telephone Encounter - Di Valdes [place] - 11/18/2024 2:41 PM EST Chart Prep Labs: done Images: done Vaccines due: yes Referrals: pending appt Screenings: none Overdue care gaps: Sbirt, SDOH documented in this encounter Plan of Treatment Upcoming Encounters Date Type Department Care Team (Late st Contact Info) Description 01/16/2025 9:30 AM EDT Telemedicine [facility] [address] [place] [address] Maurice Flores MD [address] [place] [address] documented as of this encounter Visit Diagnoses Not on filedocumented in this encounter Additional Health Concerns Assessment Noted Time PHQ-9 Depression Total Score: 0 06/13/20 23 2:56 PM EDT documented as of this encounter Care Teams Used Car Lot Attendant Relationship Specialty Start Date End Date Maurice Flores MD [address] [place] [address] PCP - General Internal Medicine 08/25/19 documented as of this encounter
--- OUTSIDE RECORDS SUMMARY | 2024-11-21 09:45 | XMS_ITS | Clinical Summary ---
Author Organization [facility] Address [address] [place] [address] Care Team Providers Care Desk Clerk Name Role Phone Unavailable Primary Care Provider Unavailabl e Social History Tobacco Use Types Packs/Day Years Used Date Smoking Tobacco: Never Assessed Sex and Gender Information Value Date Recorded Sex Assigned at Not on file Gender Identity Not on file Sexual Orientation Not on file Plan of Treatment Health Maintenance Due Date Last Done Comments Hepatitis C Virus Screening 1989 HIV Screening 2002 DTaP/Tdap/Td Vaccines (1 - Tdap) 2008 Hepatitis B Vaccines (1 of 3 - 19+ 3-dose series) 2008 COVID-19 Vaccine (2023-2 5 season) 2024 HPV Vaccines Aged Out No longer eligi ble based on patient's age to complete this topic Pneumococcal Vaccine: Pediat selvin (0-5 Years) and At-Risk Patients (6 to 49 Years) Aged Out No longer eligible b ased on patient's age to complete this topic
--- OUTSIDE RECORDS SUMMARY | 2024-11-21 09:45 | XMS_ITS | Encounter Summary ---
Author Organization [employer] Address [address] [facility] [address] [place] [address] Care Team Providers Care Clean Up Supervisor Name Role Phone Maurice Flores MD Primary Care Prov ider Reason for Visit * Reason Onset Date Comments Appointment Request 04/30/2024 Encounter Details Date Type Department Care Team (Late Contact Info) Description 04/30/2024 Telephone [facility] [address] [place] [address] Maurice Flores MD [address] [place], [place] [phone] Appointment Request Social History Tobacco Use Types [...] encounter Miscellaneous Notes * Telephone Encounter - Felice Rivera - 04/30/2024 1:57 PM EDT Tc from pt requesting an appt for derm follow up. Please contact at [phone] Latvian documented in this encounter Plan of Treatment Upcoming Encounters Date Type Department Care Team (Late st Contact Info) Description 01/16/2025 9:30 AM EDT Telemedicine [facility] [address] [place] [address] Maurice Flores MD [address] [place] [address] documented as of this encounter Visit Diagnoses Not on filedocumented in this encounter Additional Health Concerns Assessment Noted Time PHQ-9 Depression Total Score: 0 06/13/20 23 2:56 PM EDT documented as of this encounter Care Teams Clean Up Supervisor Relationship Specialty Start Date End Date Maurice Flores MD [address] [place] [address] PCP - General Internal Medicine 08/25/19 documented as of this encounter
[2024-11-21 12:35] LABS: Alanine Aminotransferase 35 U/L (0-31); Albumin Level 4.1 g/dL (3.5-5.0); Alkaline Phosphatase 60 U/L (39-117); Anion Gap 9 (12-20); Aspartate Amino Transferase 28 U/L (5-31); Bilirubin Total 0.5 mg/dL (0.0-1.0); Blood Urea Nitrogen 11 mg/dL (9-16); Calcium 9.5 mg/dL (8.4-10.2); Carbon Dioxide 25 mmol/L (22-29); Chloride 109 mmol/L (96-108); Cholesterol 233 mg/dL (<200); Estimated Glomerular Filt Rate > 60; Glucose Random 88 mg/dL (60-115); HDL Cholesterol 38 mg/dL (>40); LDL Cholesterol Calculated 159 mg/dL (<100); Potassium 4.1 mmol/L (3.3-5.1); Sodium 139 mmol/L (135-145); Total Protein 7.4 g/dL (6.5-8.0); Triglycerides 184 mg/dL (<150)
== END 2024-11-21 09:17 | disposition home or self-care (01) ==
LOC: HO.CHCLDS 09:16
PROVIDERS: Visit Provider Internal Medicine
DX: D18.03 Hemangioma of intra-abdominal structures (principal)
CPT/HCPCS: 36415; 80053; 80061

== ENCOUNTER → 2024-11-27 12:51 | Outpatient (BNV) | payer MEDICAID, SELFPAY | PROVIDERS: PCP Internal Medicine; Visit Provider Radiology Diagnostic Radiology | DX: K76.0 Fatty (change of) liver, not elsewhere classified (principal); D18.03 Hemangioma of intra-abdominal structures | CPT/HCPCS: 74183 ==

== ENCOUNTER 2025-06-02 14:35 | Outpatient (AMB) | payer MEDICAID, SELFPAY ==
--- NOTE | 2025-06-02 14:39 | A.OFFVIS_ITS ---
Vital Signs 06/02/25 14:44 Height 5 ft 6 in Weight 212 lb 6 oz BMI 34.3 BP 147/87 H Blood Pressure Location Lt brachial Position Sitting Pulse 67 Pulse Source Pulse Oximeter Pulse Oximetry (%) 99 Oxygen Delivery Method Room Air Intake Visit Reasons: Chronic Bilat Lower Back Pain w/ Sciatica Intake Note: Pain today 04/30 Mortar Mixer Operator Required: No Accompanied by: Other Relationship Allergies No Known Allergies (No Known Allergies*) Allergy (Verified 06/02/25 14:41) HPI Comments Details: The patient is a 35-year-old female presenting with chronic low back pain radiating to both legs. 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 The pain is described as burning and tingling, with a sensation of coolness, and is exacerbated by backward bending. The patient underwent knee surgery, specifically arthroscopy, which was initially thought to alleviate the back pain, but it did not. She has been using tramadol for pain management, but reports it is ineffective. Previous imaging includes a lumbar x-ray in 2022, which showed slight slippage at L4-L5 but no significant arthritis. Thoracic spine MRI is noted below. The patient engages in physical activities such as walking and cardio exercises at the gym. She has also been receiving healthcare facility administrator, which provides some relief. - Onset: Approximately one year ago following a work-related accident - Quality: Burning, tingling, sharp and cool sensations - Location: Lower back radiating to both legs - Exacerbating factors: Backward bending - Relieving factors: live in caregiver provides some relief - Interference: Affects sleep and daily activities - Affect: No reported impact on mood or psychological wellbeing - Analgesia: Currently using tramadol, which is ineffective; pain described as constant with a severity of 9/10 - Adverse Effects: None reported from current medications - Activities of Daily Living: Pain affects sleep and daily functioning - Aberrant Drug Related Behaviors: None reported Oswestry Low Back Pain Disability Score=31 PFSH Medical History Abscess of right fallopian tube HTN (hypertension) Anxiety Surgical History Hx of removal of ovary History of Family History Paternal Aunt Breast cancer Social History Alcohol intake: never Gender identity: Female Female Reproductive History Menstrual Age of Menarche: 11 Review of Systems Const Details: - Musculoskeletal: Reports chronic low back pain radiating to both legs, burning, tingling, and cool sensations - Neurological: Denies bladder or bowel dysfunction, or saddle anesthesia, weakness or foot drop All systems reviewed & are unremarkable except as noted in HPI and below Physical Exam Vital Signs: Last Vital Signs Pulse 67 06/02/25 14:44 BP 147/87 H 06/02/25 14:44 Pulse Ox 99 06/02/25 14:44 Oxygen Delivery Method Room Air 06/02/25 14:44 BMI result Body Mass Index 34.3 General: Appears afebrile. Alert and oriented. Mood and affect appropriate. Follows and participates in conversation appropriately. Respiratory effort is unlabored. No cough. Able to transition from sit to stand unassisted. Ambulates with bilaterally normal heel strike and toe off. General: Yes no CVA tenderness Back/Spine/Pelvis Other: Patient is able to walk and stand on heels and tip toes with no difficulties demonstrating good motor tone. No limping. Can flex forward to 70-75 degrees and extend to 5-10 degrees before experiencing lumbar pain, increased pain with extension. Demonstrates 5/5 strength of quadriceps bilaterally as well as flexion/dorsiflexion of bilateral feet against resistance. 2+ pedal pulses bilaterally. Straight leg rise with dorsiflexion negative bilaterally. +2 patellar and achilles reflexes bilaterally. Facet loading test positive bilaterally. Roge sign, Tito?s, Pelvic compression and Stinchfield tests are positive on the right, equivocal on the left. No groin pain with I/E hip rotations. Valsalva maneuver negative. Back: no CVA tenderness Cervical Spine: cervical ROM normal, cervical muscular tenderness, No Cervical spine scars present, No Cervical spine tenderness and No step off deformity Thoracic/Lumbar Spine: thoracic and lumbar spine normal to inspection, No Thoracic/lumbar spine scar(s), Lasegue's sign negative, straight leg raise negative bilaterally, pain with thoraco-lumbar ROM, paraspinal muscle tenderness, thoraco-lumbar ROM limited, No thoracic spinal tenderness and lumbar spinal tenderness at L3, at L4 and at L5 Sacroiliac joints: bilaterally tender to palpation Extrem General: Yes capillary refill normal, Yes no clubbing, cyanosis or edema and Yes no calf tenderness Results Reviewed Results Reviewed: XR LUMBOSACRAL SPINE 06/06/23 CLINICAL INFORMATION: Pain. COMPARISON: 08/05/2019. FINDINGS: There is minimal retrolisthesis of L4 over L5. The alignment is otherwise normal. The disc spaces are maintained. The bone mineralization is normal. The vertebral body heights are maintained. The soft tissues are unremarkable. IMPRESSION: Minimal retrolisthesis L4 over L5. No evidence for fracture. MR THORACIC SPINE WITH CONTRAST 08/11/24 CLINICAL INFORMATION: Chronic midline thoracic pain. 34-year-old female. FINDINGS: ALIGNMENT: -Normal kyphosis. No scoliosis. -Normal alignment without subluxation. VERTEBRAL BODIES AND BONE MARROW: -No compression deformities. -There are scattered Schmorl's nodes within the endplates of T7-8, and T10-11. -No gross bone marrow edema or abnormal infiltrating bone marrow signal. -Mild fatty type endplate changes present at T10-T11. DISCS: -Mild loss of disc height and signal T7-T8 and T11-12, and mild to moderate loss T10-T11. -Remainder the intervertebral discs are normal. SPINAL CORD: -Mild ventral cord flattening on the right at T10-11 as detailed below. No signal abnormality. -Otherwise, the imaged cord is normal in caliber and signal throughout. PARASPINAL SOFT TISSUES: -There is a tiny cyst in the lateral left kidney. -Normal in appearance. AXIAL DISC SPACE LEVELS: C6-7: Only seen sagittally and incompletely imaged is left paramedial and lateral extrusion of disc material with cephalad migration, and extension into the left foraminal zone. This results in mild central canal narrowing without cord impingement or contact, mild left lateral recess narrowing, and mild to moderate left neural foraminal narrowing. C7-T1: Normal. T1-T2: Shallow diffuse disc bulge present, more prominent left lateral, with extension into the left greater than right foraminal zones. No significant central canal narrowing. Mild bilateral neural foraminal narrowing. Normal facets. T2-T3: Normal. T3-T4: Normal. T4-T5: Normal. T5-T6: Normal. T6-T7: Minimal shallow disc bulge present, no significant mass effect. No central canal or neural foraminal stenosis. T7-T8: Right paracentral disc protrusion is present, minimally indenting on the ventral thecal sac, and minimally indenting upon the right ventral cord without significant cord flattening, impingement, or signal abnormality. This is best seen on (series 16, image 8). There is mild bilateral mild facet degeneration. T8-T9: Mild bilateral facet degeneration. Otherwise normal. T9-T10: Mild bilateral facet degeneration. Otherwise normal. T10-T11: Right paracentral and lateral protrusion of disc material, minimally indenting upon the right ventral thecal sac, and minimally indenting on the right ventral cord. No cord impingement, or signal abnormality. Preserved CSF signal surrounding the cord. Mild bilateral facet degeneration. T11-T12: Normal. T12-L1: Mild bilateral facet degeneration. Otherwise normal. IMPRESSION: 1. Mild spondylosis of the thoracic spine, relatively confined to C6-C7, T7-T8, and T10-T11 as detailed above. Mild right ventral cord flattening and T7-T8, and T10-T11 without dot impingement. No gross cord impingement or signal abnormality. 2. No gross compression deformity, bone marrow edema, or abnormal infiltrating bone marrow signal. Additional ancillary findings as discussed. Assessment & Plan Assessment & Plan (1) Chronic low back pain: Code(s): M54.50 - Low back pain, unspecified; G89.29 - Other chronic pain Category: Medical (2) Sacroiliac joint pain: Code(s): M53.3 - Sacrococcygeal disorders, not elsewhere classified Category: Medical (3) Degenerative disc disease, thoracic: Code(s): M51.34 - Other intervertebral disc degeneration, thoracic region Category: Medical (4) Thoracic spondylosis: Code(s): M47.814 - Spondylosis without myelopathy or radiculopathy, thoracic region Category: Medical Plan - Order x-rays to assess for facet arthropathy and degree of spondylosis - Consider medial branch blocks for diagnostic purposes if x-ray findings are consistent - Discussed therapeutic options including injections, peripheral nerve stim ulation, and radiofrequency ablation for pain management. Informational pamphlets were provided to patient. - Script sent for diclofenac sodium for pain management, avoiding other NSAIDs; side effects and precautions were discussed with patietn. - Continue healthcare facility administrator as it provides some relief. Continue daily physical activity, stretching exercises, weight optimization, adequate hydration and good posture. Recommend formal PT. All questions and concerns have been answered and patient agreed with the plan. Follow up for xray results and sooner as needed. Patient was informed and verbally consented to the use of an ambient scribe for clinic note documentation during this visit. Orders: Orders XR sacroiliac joint min 3V 06/02/25 G89.29 - Other chronic pain, M53.3 - Sacrococcygeal disorders, not elsewhere classified, M54.50 - Low back pain, unspecified XR lumbar spine 4V min 06/02/25 G89.29 - Other chronic pain, M54.50 - Low back pain, unspecified Medications: New diclofenac sodium Take it with food and full glass of water. Avoid other NSAIDs. 50 mg PO TID PRN 90 tabs 0RF pain 30 days G89.29 - Other chronic pain, M53.3 - Sacrococcygeal disorders, not elsewhere classified, M54.50 - Low back pain, unspecified Coding Level of Care Code New Pt Level 4 (24083) Diagnoses Chronic low back pain M54.50; G89.29 Sacroiliac joint pain M53.3 Degenerative disc disease, thoracic M51.34 Thoracic spondylosis M47.814
[2025-06-02 14:44] VITALS: BP 147/87; PULSE 67; O2SAT 99; BMI 34.3
--- OUTSIDE RECORDS SUMMARY | 2025-06-02 15:29 | XMS_ITS | Clinical Summary ---
Author Organization Formerly [facility] Address [address] [place] [address] Care Team Providers Care Farm Operations Manager Name Role Phone Unavailable Primary Care Provider Unavailabl e Social History Tobacco Use Types Packs/Day Years Used Date Smoking Tobacco: Never Assessed Comments Unknown Sex and Gender Information Value Date Recorded Sex Assigned at Not on file Legal Sex Female 11:54 AM EDT Gender Identity Not on file Sexual Orientation [...]
--- OUTSIDE RECORDS SUMMARY | 2025-06-02 15:29 | XMS_ITS | Encounter Summary ---
Author Organization [employer] Address [address] [facility] [address] [place] [address] Care Team Providers Care School Clerk Name Role Phone Maurice Flores MD Primary Care Prov ider Reason for Visit * Reason Comments Med Refill Encounter Details Date Type Department Care Team ([facility] Contact Info) Description 10/24/2022 Refill [facility] MEDICINE [address] [place] [address] Maurice Flores MD [address] [place], [place] [phone] Social History Tobacco Use Types Packs/Day Years [...] Upcoming Encounters Date Type Department Care Team ([facility] Contact Info) Description 07/01/2025 10:00 AM EDT Office Visit [facility] ADULT DENTAL [address] [place], [place] [phone] Domenico Killian [address] [place], [place] [phone] documented as of this encounter Visit Diagnoses Not on filedocumented in this encounter Care Teams School Clerk Relationship Specialty Start Date End Date Maurice Flores MD [address] [place] [phone] PCP - General Internal Medicine 08/25/19 documented as of this encounter
== END 2025-06-02 15:04 | disposition home or self-care (01) ==
LOC: HO.PMC 14:35
PROVIDERS: PCP Internal Medicine; Visit Provider Nurse Practitioner Family
DX: M54.50 Low back pain, unspecified (principal); G89.29 Other chronic pain; M53.3 Sacrococcygeal disorders, not elsewhere classified; M51.34 Other intervertebral disc degeneration, thoracic region; M47.814 Spondylosis without myelopathy or radiculopathy, thoracic region
CPT/HCPCS: 99204

== ENCOUNTER 2025-06-02 14:35 | Outpatient (REF) | payer MEDICAID, SELFPAY ==
--- NOTE | ~2025-06-02 | XR_ITS ---
EXAMINATION: XR SACROILIAC JOINT 3 OR MORE VIEWS HISTORY: M53.3 - Sacrococcygeal disorders, not elsewhere classified COMPARISON: There are no prior studies available for comparison. FINDINGS: Three views of the bilateral sacroiliac joints are submitted. The joint spaces are maintained. No erosions are seen. XR/XR sacroiliac joint min 3V IMPRESSION: Unremarkable examination of the sacroiliac joints. Electronically signed by: Ross Latham MD 06/03/2025 07:45 AM EDT
--- NOTE | ~2025-06-02 | XR_ITS ---
EXAMINATION: XR LUMBAR SPINE 4 OR MORE VIEWS HISTORY: M54.50 - Low back pain, unspecified COMPARISON: Comparison is made with the prior examination dated 06/06/2023. FINDINGS: AP, lateral, bilateral oblique, and coned down views of the lumbar spine are submitted. Osseous mineralization is normal. Five nonrib-bearing lumbar vertebral bodies are identified, maintaining normal height without evidence of fracture. Again seen is slight retrolisthesis of L4 on L5. The intervertebral disc spaces are preserved. The posterior elements are intact. There is no spondylolysis. The visualized paraspinal soft tissues are unremarkable. XR/XR lumbar spine 4V min IMPRESSION: Slight retrolisthesis of L4 on L5 without change. Electronically signed by: Ross Latham MD 06/03/2025 07:38 AM EDT
== END 2025-06-02 14:36 | disposition home or self-care (01) ==
LOC: HO.XRAY 14:35
PROVIDERS: PCP Internal Medicine; Visit Provider Nurse Practitioner Family
DX: M54.50 Low back pain, unspecified (principal); G89.29 Other chronic pain; M51.34 Other intervertebral disc degeneration, thoracic region; M47.814 Spondylosis without myelopathy or radiculopathy, thoracic region; M53.3 Sacrococcygeal disorders, not elsewhere classified
CPT/HCPCS: 72110; 72202; 99212

== ENCOUNTER → 2025-06-02 15:16 | Outpatient (BNV) | payer MEDICAID, SELFPAY | PROVIDERS: PCP Internal Medicine; Visit Provider Radiology Diagnostic Radiology | DX: M54.50 Low back pain, unspecified (principal); M53.3 Sacrococcygeal disorders, not elsewhere classified | CPT/HCPCS: 72110; 72202 ==

== ENCOUNTER 2025-07-24 13:59 | Outpatient (REF) | payer MEDICAID, SELFPAY ==
--- OUTSIDE RECORDS SUMMARY | 2025-07-22 09:30 | XMS_ITS | Encounter Summary ---
Author Organization [employer] Address [address] [place] [address] Care Team Providers Care Peer Specialist Name Role Phone Maurice Flores MD Primary Care Prov ider Encounter Details Date Type Department Care Team ([facility] st Contact Info) Description 07/22/2025 9:30 AM EDT Telemedicine [facility] MED & PEDS [address] [place], [place] [phone] Maurice Flores MD [address] [place], [place] [phone] Primary hypertension (Primary Dx) Social History Tobacco Use Types Packs/Day Years Used Date Smoking Tobacco: Never Smokeless Tobacco: Never Alcohol Use Standard Drinks/Week Comments Never 0 (1 standard drink = 0.6 oz pur e alcohol) Depression Answer Date Recorded Patient Health Questionnaire-9 Score 1 07/22/2025 Patient Health Questionnaire-9 Score 1 07/22/2025 Last PHQ-9: Questionnaire Data Not on file 1 Housing Stability Answer Date Recorded What is [...] Date Recorded Patient Health Questionnaire-2 Score 1 07/22/2025 Internet Access Answer Date Recorded Internet Access Q1 Yes 11/19/2024 Internet Access Q2 Not on file 11/19/2024 Comments Unknown Sex and Gender Information Value Date Recorded Sex Assigned at Female 08/21/2022 10:36 AM EDT Legal Sex Female 10:36 AM EDT Gender Identity Female 08/21/2022 10:36 AM EDT Sexual Orientation Straight 08/21/2022 10 :36 AM EDT documented as of this encounter Last Filed Vital Signs Vital Sign Reading Time Taken Comments Blood Pressure 132/87 07/22/2025 9:49 AM EDT Pulse - - Temperature - - Respiratory Rate - - Oxygen Saturation - - Inhaled Oxygen Concentration - - Weight - - Height - - Body Mass Index - - documented in this encounter Functional Status * Over the past 2 weeks, how often have you been bothered by any of the following problems? Question Answer Date of Assessment Author Patient Health Questionnaire-2 Score 1 0 10/2024 9:18 AM Di Arroyo [place] * Little interest or pleasure in doing things Answer Date of Assessment Author Not at all 07/22/2025 9:18 AM Deann Arroyo [place] * Feeling down, depressed, or hopeless Answer Date of Assessment Author Several days 07/22/2025 9:18 AM Deann Arroyo [place] * Trouble falling or staying asleep, or sleeping too much Answer Date of Assessment Author Not at all 07/22/2025 9:18 AM Deann Arroyo [place] * Feeling tired or having little energy Answer Date of Assessment Author Not at all 07/22/2025 9:18 AM Deann Arroyo [place] * Poor appetite or overeating Answer Date of Assessment Author Not at all 07/22/2025 9:18 AM Deann Arroyo [place] * Feeling bad about yourself - or that you are a failure or have let yourself or your family down Answer Date of Assessment Author Not at all 07/22/2025 9:18 AM Deann Arroyo [place] * Trouble concentrating on things, such as reading the newspaper or watching television Answer Date of Assessment Author Not at all 07/22/2025 9:18 AM EDT Deann Valdes MA * Moving or speaking so slowly that other people could have noticed? Or the opposite - being so fidgety or restless that you have been moving around a lot more than usual. Answer Date of Assessment Author Not at all 07/22/2025 9:18 AM EDDeann Marshall MA * Thoughts that you would be better off or hurting yourself in some way Answer Date of Assessment Author Not at all 07/22/2025 9:18 AM EULOGIOT Deann Valdes MA * Patient Health Questionnaire-9 Score Answer Date of Assessment Author 1 07/22/2025 9:18 AM EULOGIOT Deann Valdes MA * How difficult have these problems made it for you to do your work, take care of things at home, or get along with other people? Answer Date of Assessment Author Not difficult at all 07/22/2025 9:18 AM EDT Di Domingo MA documented as of this encounter Progress Notes * Maurice Hill MD - 07/22/2025 9:30 AM EDT Subjective Patient ID: Beth Frazier is a 35 y.o. female who presents for No chief complaint on file.. Hypertension This is a chronic problem. The problem is controlled. Pertinent negatives include no chest pain, headaches, palpitations, peripheral edema or shortness of breath. Review of Systems Respiratory: Negative for shortness of breath. Cardiovascular: Negative for chest pain and palpitations. Neurological: Negative for headaches. Objective Physical Exam Neurological: General: No focal deficit present. Mental Status: She is oriented to person, place, and time. Psychiatric: Mood and Affect: Mood normal. Behavior: Behavior normal. Assessment/Plan Problem List Items Addressed This Visit Primary hypertension - Primary Controlled, keep low sodium diet and exercise as tolerated, keep blood pressure log, target <140/90, new labs ordered, follow up in 4 months Relevant Orders CBC auto differential Comprehensive Metabolic Panel Lipid Panel, Standard TSH W/Reflex to FT4 documented in this encounter Miscellaneous Notes * Assessment & Plan Note - Maurice Hill MD - 07/22/2025 9:59 AM EDTAssociated Problem(s): Primary hypertension Controlled, keep low sodium diet and exercise as tolerated, keep blood pressure log, target <140/90, new labs ordered, follow up in 4 months documented in this encounter Plan of Treatment Scheduled Orders Name Type Priority Associated Diagnoses Orde r Schedule CBC auto differential Lab Routine Primary hypertension Expected: 07/22/2025 (Approximate), Expires: 07/22/2026 Comprehensive Metabolic Panel Lab Routine Primary hypertension Expected: 07/22/2025 (Approximate), Expires: 07/22/2026 Lipid Panel, Standard Lab Routine Primary hypertension Expected: 07/22/2025 (Approximate), Expires: 07/22/2026 TSH W/Reflex to FT4 Lab Routine Primary hypertension Expected: 07/22/2025 (Approximate), Expires: 07/22/2026 documented as of this encounter Visit Diagnoses Diagnosis Primary hypertension- Primary Unspecified essential hypertension documented in this encounter Additional Health Concerns Assessment Noted Time PHQ-9 Depression Total Score: 1 07/22/20 25 9:18 AM EDT documented as of this encounter Care Teams Peer Specialist Relationship Specialty Start Date End Date Maurice Flores MD [address] [place] [id number] PCP - General Internal Medicine 08/25/19 documented as of this encounter
--- OUTSIDE RECORDS SUMMARY | 2025-07-24 14:12 | XMS_ITS | Encounter Summary ---
Author Organization [employer] Address [address] [facility] [address] [place] [address] Care Team Providers Care Layer Up Name Role Phone Maurice Flores MD Primary Care Prov ider Reason for Visit * Reason Onset Date Comments chart prep 07/21/2025 Encounter Details Date Type Department Care Team (Late st Contact Info) Description 07/21/2025 Telephone C [facility] [address] [place], [place] [phone] Maurice Flores MD [address] [place] [address] chart prep Social History Tobacco Use Types [...] Telephone Encounter - Di Valdes [place] - 07/21/2025 1:38 PM EDT Chart Prep Labs: done Images: done Referrals: complete Vaccines due: Covid, Flu, and Hep A Screenings: not applicable Overdue care gaps: PHQ-9 documented in this encounter Plan of Treatment Not on file documented as of this encounter Visit Diagnoses Not on filedocumented in this encounter Additional Health Concerns Assessment Noted Time PHQ-9 Depression Total Score: 0 06/13/20 23 2:56 PM EDT documented as of this encounter Care Teams Layer Up Relationship Specialty Start Date End Date Maurice Flores MD [address] [place] [address] [place] [address] PCP - General Internal Medicine 08/25/19 documented as of this encounter
--- OUTSIDE RECORDS SUMMARY | 2025-07-24 14:12 | XMS_ITS | Encounter Summary ---
Author Organization [employer] Address [address] [facility] [address] [place] [address] Care Team Providers Care Air Analysis Engineering Technician Name Role Phone Maurice Flores MD Primary Care Prov ider Reason for Visit * Reason Onset Date Comments appt 07/22/2024 Encounter Details Date Type Department Care Team (Late st Contact Info) Description 07/22/2024 Telephone [facility] ADULT DENTAL [address] [place], [place] [phone] Domenico Killian [address] [place] [address] appt Social History Tobacco Use Types Packs/Day [...] treatment needed. No indication of treament time. desktop publishing associate is confirming with provider tx time for appt and will reach out to office for scheduling DR documented in this encounter Plan of Treatment Not on file documented as of this encounter Visit Diagnoses Not on filedocumented in this encounter Additional Health Concerns Assessment Noted Time PHQ-9 Depression Total Score: 0 06/13/20 23 2:56 PM EDT documented as of this encounter Care Teams Air Analysis Engineering Technician Relationship Specialty Start Date End Date Maurice Flores MD [address] [place] [id number] PCP - General Internal Medicine 08/25/19 documented as of this encounter
--- OUTSIDE RECORDS SUMMARY | 2025-07-24 14:12 | XMS_ITS | Encounter Summary ---
Author Organization [employer] Address [address] [facility] 7[address] [place] [address] Care Team Providers Care Laborer/Grade Check Name Role Phone Maurice Flores MD Primary Care Prov ider Encounter Details Date Type Department Care Team (Late st Contact Info) Description 06/20/2023 Abstract [facility] ADULT DENTAL [address] [place], [place] [phone] Alma Lott DDS Social History Tobacco Use Types Packs/Day [...] as of this encounter Plan of Treatment Not on file documented as of this encounter Visit Diagnoses Not on filedocumented in this encounter Additional Health Concerns Assessment Noted Time PHQ-9 Depression Total Score: 0 06/13/20 23 2:56 PM EDT documented as of this encounter Care Teams Laborer/Grade Check Relationship Specialty Start Date End Date Maurice Flores MD [address] [place] [address] PCP - General Internal Medicine 08/25/19 documented as of this encounter
--- OUTSIDE RECORDS SUMMARY | 2025-07-24 14:12 | XMS_ITS | Clinical Summary ---
Author Organization [employer] Address [address] [facility] [address] [place] [address] Care Team Providers Care Armored Transport Service Manager Name Role Phone Maurice Flores MD Primary Care Prov ider Allergies No known active allergies Medications lidocaine (Lidoderm) 5 % patch Apply 1 patch topically Once per day. Remove & discard patch within 12 hours or as directed by . 30 patch 1 10/08/20 24 Active Retin-A 0.025 % creamIndications: Melasma APPLY TO THE AFFECTED AREA(S) TOPICALLY AT BEDTIME 45 g 2 04/02/20 25 Active lisinopril 20 MG tablet Take 1 tablet (20 mg) by mouth in the morning. 90 tablet 3 05/19/20 25 Active ibuprofen 600 MG tablet Take 1 tablet by mouth every 8 (eight) hours if needed. Active estradiol (Climara) 0.1 MG/24HR Place 1 patch on the skin 1 (one) time per week. 4 patch 11 07/22/20 25 026 Active estradiol (Climara) 0.1 MG/24HRIndication s:Encounter for surveillance of transdermal patch hormonal contraceptive device Place 1 patch on the skin 1 (one) time per week. 12 patch 3 10/08/20 24 025 Discontinued Active Problems Problem Noted Date Diagnosed Date [...] appear Liver hemangioma 03/04/2024 Assessment & Plan (01/16/2025 9:54 AM EDT): MRI with stable lesions, will follow up in 1 year Assessment & Plan (11/19/2024 9:43 AM EST): [...] needed Primary hypertension 06/13/2023 Assessment & Plan (07/22/2025 9:59 AM EDT): Controlled, keep low sodium diet and exercise as tolerated, keep blood pressure log, target <140/90, new labs ordered, follow up in 4 months Assessment & Plan (05/19/2025 2:14 PM EDT): Controlled, keep low sodium diet and exercise as tolerated, keep bp log, target <140/90 Assessment & Plan (01/16/2025 9:54 AM EDT): Controlled, keep low sodium diet and exercise as tolerated, bp target <140/90, follow up in 3 monhs Assessment & Plan (06/19/2024 3:02 PM EDT): [...] Encounters Date Type Department Care Team Description 07/22/2025 9:30 AM EDT Telemedicine [facility] [address] [place] [address] Maurice Flores MD Primary hypertension (Primary Dx) 07/21/2025 Telephone [facility] [address] [place] [address] Maurice Flores MD chart prep 07/21/2025 Telephone [facility] [address] [place] [address] Maurice Flores MD 06/02/2025 Orders Only [facility] External Provider, [facility] 05/28/2025 2:00 PM EDT Office Visit [facility] [address] [place] [address] Arturo Marie Dental calculus (Primary Dx) 05/19/2025 1:45 PM EDT Telemedicine [facility] [address] [place] [address] Maurice Flores MD Chronic bilateral low back pain with right-sided sciatica (Primary Dx); Primary hypertension 05/19/2025 Travel 05/13/2025 Refill [facility] [address] [place] [address] Maurice Flores MD from Last 3 Months Social History Tobacco [...] Pressure 132/87 07/22/2025 9:49 AM EDT Pulse 76 05/28/2025 2:20 PM EDT Temperature 36.4 C (97.5 F) 07/15/2024 11:00 AM EDT Respiratory Rate 20 07/15/2024 11:00 AM EDT Oxygen Saturation 98% 07/15/2024 11:00 AM EDT Inhaled Oxygen Concentration - - Weight 98.4 kg (217 lb) 07/15/2024 11:00 AM EDT Height 167.6 cm (5' 6 ) 07/15/2024 11:00 AM EDT Body Mass Index 35.02 07/15/2024 11:00 AM EDT Plan of Treatment Health Maintenance Due Date Last Done Comments Family Planning (PISQ) 2004 Hepatitis A Vaccines (1 of 2 - Risk 2-dose series) 2008 COVID-19 Vaccine ( season) 2025 09/22/2021, 03/14/2021, 02/14/2021 Influenza Vaccine (#1) 2025 , 07/12/2021, 07/28/2020, Additional history exists Tobacco Screening 07/21/2025 07/21/2024 Alcohol/Substance Use Screening 11/19/2025 11/19/2024 SDOH Screening 11/19/2025 11/19/2024 Dental Oral Exam 11/29/2025 05/28/2025, , 06/19/2023 Dental Prophylaxis 11/29/2025 05/28/2025, 0 06/17/2024, 10/01/2023 Disability Screening 01/16/2026 01/16/2025 Dental X-Ray: Bitewings 05/29/2026 05/28/20, 06/17/2024, 10/13/2022 Depression Screening 07/22/2026 07/22/2025, 07/22/20 Cervical Cancer Screening 11/23/2026 HPV/Cotest 11/23/2026 11/23/2021, 11/23/2021 Pap Smear 11/23/2026 11/23/2021 DTaP/Tdap/Td Vaccines (8 - Td or Tdap) 04/06/2027 04/06/2017, 04/15/2003, 1993, Additional history exists Dental X-Ray: Full Mouth 06/18/2027 06/17/2024 Lipid Panel 11/21/2029 11/21/2024, 06/22, 06/14/2023, Additional history exists HIV Screening 06/14/2033 Zoster Vaccines (1 of 2) 2039 RSV Patients and Patients Aged 60 years or older (1 - 1-dose 75+ series) 2064 HIB Vaccines Completed 07/17/1990 IPV Vaccines Completed 1993, 04/21, 1989, Additional history exists Hepatitis B Vaccines Completed 10/04/2001, 05/02/2001, 04/02/2001 HPV Vaccines Completed 10/27/2019, 04/21, 02/18/2019 Hepatitis C Screening Completed 06/14/2023, 022 Meningococcal B Vaccine Aged Out No l onger eligible based on patient's age to complete this topic Meningococcal Vaccine Aged Out No cary karel eligible based on patient's age to complete this topic Pneumococcal Vaccine: Pediatrics (0 to 5 Years) and At-Risk Patients (6 to 49) Years Aged Out No longer eligible based on patient's age to complete this topic RSV under 20 months Aged Out No longe r eligible based on patient's age to complete this topic Rotavirus Vaccines Aged Out No longer eligible based on patient's age to complete this topic Procedures Procedure Name Priority Date/Time Associated Diagnosis Comments XR SACROILIAC JOINTS 3+ VIEWS Routine 06/02/2025 3:25 PM EDT XR LUMBAR SPINE COMPLETE 4+ VIEWS Routine 06/02/2025 3:25 PM EDT COMPREHENSIVE PERIODONTAL EVALUATION - NEW OR ESTABLISHED PATIENT Routine 05/28/2025 2:00 PM EDT PERIODIC ORAL EVALUATION - ESTABLISHED PATIENT Routine 05/28/2025 2:00 PM EDT INTRAORAL - PERIAPICAL FIRST RADIOGRAPHIC IMAGE Routine 05/28/2025 2:00 PM EDT BITEWINGS - 4 RADIOGRAPHIC IMAGES Routine 05/28/2025 2:00 PM EDT CASE PRESENTATION, DETAILED AND EXTENSIVE TREATMENT PLANNING Routine 05/28/2025 2:00 PM EDT ORAL HYGIENE INSTRUCTIONS Routine 05/28/2025 2:00 PM EDT PROPHYLAXIS - ADULT Routine 05/28/2025 2 :00 PM EDT INTRAORAL - PERIAPICAL EACH ADDITIONAL RADIOGRAPHIC IMAGE Routine 05/28/2025 2:00 PM EDT LIPID PANEL, STANDARD Routine 11/21/2024 9:18 AM EST Liver hemangioma INTRAORAL - COMPLETE SERIES OF RADIOGRAPHIC IMAGES Routine 06/17/2024 10:00 AM EDT HEPATITIS C ANTIBODY REFLEX Routine 06/14/2023 10:36 AM EDT Encounter for surveillance of transdermal patch hormonal contraceptive device ZZZ HISTORICAL HPV E6/E7 RFLX SEPIDEH 16 18/45 Routine 11/23/2021 3:51 PM EST HM PAP/HPV Routine 11/23/2021 12:00 AM EST from Last 3 Months or Most Recently Relevant to Health Maintenance Results * XR Sacroiliac Joints 3+ Views (06/02/2025 3:25 PM EDT) Anatomical Region Laterality Modality Sacroiliac joint, Pelvis Radiogr aphic Imaging 06/02/2025 3:25 PM EDT Narrative 06/03/2025 7:47 AM EDT [place] [address] XRay Report Signed Patient: Beth Shore MR#: [id number] : 1990 Acct:[id number] Age/Sex: 35 / F ADM Date: 06/02/25 Loc: [facility] Attending Dr: Laura KATHLEEN Ordering Physician: Laura Lazo Date of Service: 06/02/25 Procedure(s): XR sacroiliac joint min 3V Accession Number(s): [id number] cc: Maurice Flores MD; Laura Lazo EXAMINATION: XR SACROILIAC JOINT 3 OR MORE VIEWS HISTORY: M53.3 - Sacrococcygeal disorders, not elsewhere classified COMPARISON: There are no prior studies available for comparison. FINDINGS: Three views of the bilateral sacroiliac joints are submitted. The joint spaces are maintained. No erosions are seen. XR/XR sacroiliac joint min 3V IMPRESSION: Unremarkable examination of the sacroiliac joints. Electronically signed by: Ross Latham MD 06/03/2025 07:45 AM EDT RP Dictated By: Ross Latham MD Signed By: <Electronically signed by Ross Latham MD in OV> 06/03/25 0745 DD/ 152 TD/TT: 06/02/25 1537 [facility] Psychiatrist: Procedure Note Donotuseinterpreter, Image - 06/03/2025 [place] [address] XRay Report Signed Patient: Miley Shore#: [id number] : 1990Acct:[id number] Age/Sex: 35 / FADM Date: 06/02/25 Loc: [facility] Attending Dr: Laura KATHLEEN Ordering Physician: Laura Lazo Date of Service: 06/02/25 Procedure(s): XR sacroiliac joint min 3V Accession Number(s): [id number] cc: Maurice Flores MD; Laura Lazo EXAMINATION: XR SACROILIAC JOINT 3 OR MORE VIEWS HISTORY: M53.3 - Sacrococcygeal disorders, not elsewhere classified COMPARISON: There are no prior studies available for comparison. FINDINGS: Three views of the bilateral sacroiliac joints are submitted. The joint spaces are maintained. No erosions are seen. XR/XR sacroiliac joint min 3V IMPRESSION: Unremarkable examination of the sacroiliac joints. Electronically signed by: Ross Latham MD 06/03/2025 07:45 AM EDT RP Dictated By: Ross Latham MD Signed By: <Electronically signed by Ross Latham MD in OV> 06/03/25 0745 DD/ 1525 TD/TT: 06/02/25 1537 [place] Tenens Psychiatrist: [facility] External Provider IMG XR PROCEDURES Final Result * XR Lumbar Spine Complete 4+ Views (06/02/2025 3:25 PM EDT) Anatomical Region Laterality Modality Spine, L-spine Radiographic [place] ging 06/02/2025 3:25 PM EDT Narrative 06/03/2025 7:40 AM EDT [place] [address] XRay Report Signed Patient: Beth Shore MR#: [id number] : 1990 Acct:[id number] Age/Sex: 35 / F ADM Date: 06/02/25 Loc: [facility] Attending Dr: Laura KATHLEEN Ordering Physician: Laura Lazo Date of Service: 06/02/25 Procedure(s): XR lumbar spine 4V min Accession Number(s): [id number] cc: Maurice Flores MD; Laura Lazo EXAMINATION: XR LUMBAR SPINE 4 OR MORE VIEWS HISTORY: M54.50 - Low back pain, unspecified COMPARISON: Comparison is made with the prior examination dated 06/06/2023. FINDINGS: AP, lateral, bilateral oblique, and coned down views of the lumbar spine are submitted. Osseous mineralization is normal. Five nonrib-bearing lumbar vertebral bodies are identified, maintaining normal height without evidence of fracture. Again seen is slight retrolisthesis of L4 on L5. The intervertebral disc spaces are preserved. The posterior elements are intact. There is no spondylolysis. The visualized paraspinal soft tissues are unremarkable. XR/XR lumbar spine 4V min IMPRESSION: Slight retrolisthesis of L4 on L5 without change. Electronically signed by: Ross Latham MD 06/03/2025 07:38 AM EDT Dictated By: Ross Latham MD Signed By: <Electronically signed by Ross Latham MD in OV> 06/03/25 0738 DD/ 1525 TD/TT: 06/02/25 1537 [facility] Ten[facility] Psychiatrist: Procedure Note Donotuseinterpreter, Image - 06/03/[address] [address] XRay Report Signed Patient: Miley Shore#: [id number] : 1990Acct:[id number] Age/Sex: 35 / FADM Date: 06/02/25 Loc: TRAN.XRAY Attending Dr: Laura KATHLEEN Ordering Physician: Laura Lazo Date of Service: 06/02/25 Procedure(s): XR lumbar spine 4V min Accession Number(s): [id number] cc: Maurice Flores MD; Laura Lazo EXAMINATION: XR LUMBAR SPINE 4 OR MORE VIEWS HISTORY: M54.50 - Low back pain, unspecified COMPARISON: Comparison is made with the prior examination dated 06/06/2023. FINDINGS: AP, lateral, bilateral oblique, and coned down views of the lumbar spine are submitted. Osseous mineralization is normal. Five nonrib-bearing lumbar vertebral bodies are identified, maintaining normal height without evidence of fracture. Again seen is slight retrolisthesis of L4 on L5. The intervertebral disc spaces are preserved. The posterior elements are intact. There is no spondylolysis. The visualized paraspinal soft tissues are unremarkable. XR/XR lumbar spine 4V min IMPRESSION: Slight retrolisthesis of L4 on L5 without change. Electronically signed by: Ross Latham MD 06/03/2025 07:38 AM EDT Dictated By: Ross Latham MD Signed By: <Electronically signed by Ross Latham MD in OV> 06/03/25 0738 DD/ 1525 TD/TT: 06/02/25 1537 Loc[facility] Tenens Psychiatrist: [facility] External Provider IMG XR PROCEDURES Final Result * (ABNORMAL) Lipid Panel, Standard (11/21/2024 9:18 AM EST) Triglycerides 184(H) <150 mg/dL [facility] Comment:Desirable Triglyceri de: less than 150 mg/dLBorderline High Triglyceride 150-199 mg/dLHigh Triglyceride: 200-499 mg/dLVery High Triglyceride: greater than or equal to 5OO mg/dL Cholesterol 233(H) <200 mg/dL [facility] Comment:Desirable Cholestero l: less than 200 mg/dLBorderline High Cholesterol: 200-239 mg/dLHigh Cholesterol: greater than 239 mg/dL LDL Cholesterol Calculated 159(H) <100 mg/dL [facility] Comment:Desirable LDL: less than 100 mg/dLNear Optimal/Above Optimal LDL: 110- 129 mg/dLBorderline High LDL: 130-159 mg/dLHigh LDL: 160-189 mg/dLVery High LDL: greater than or equal to 190 mg/dL HDL Cholesterol 38(L) >40 mg/dL [facility] Comment:Desirable HDL: great er than 40 mg/dL Note: This HDL assay may give artificially low results in patients with liver disease. Blood Venous blood specimen / Unknown 11/21/2024 9:18 AM EST 11/21/2024 11:44 AM EST Maurice Hill MD LAB BLOOD ORDERABL ES Final Result Performing Organization Address [facility] Co de Phone Number [facility] [address] [place] [phone] * Hepatitis C Antibody Reflex (06/14/2023 10:36 AM EDT) Pathologist [facility] Hepatitis C Antibody Nonreactive Nonreactive [facility] Comment:Antibodies to HCV no t detected; does not exclude early acuteHCV infection. 06/14/2023 10:3 6 AM EDT 06/14/2023 2:25 PM EDT Maurice Hill MD LAB BLOOD ORDERABL ES Final Result Performing Organization Address [facility] Co de Phone Number [facility] [address] [place] [phone] * HPV E6/E7 RFLX SEPIDEH 16 18/45 (11/23/2021 3:51 PM EST) Pathologist [facility] HPV mRNA E6/E7 rflx Not Detected Not Detected [facility] Comment: Methodology: Ship Scaler-Mediated Amplification This assay detects E6/E7 viral messenger RNA (mRNA) from 14 high-risk HPV types (16,18,31,33,35,39,45,51,52,56,58,59,66,68). The analytical performance characteristics of this assay have been determined by [employer]. The modifications have not been cleared or approved by the FDA. This assay has been validated pursuant to the CLIA regulations and is used for clinical purposes. For additional information, please refer to http://education.[employer]edu/faq/VCN933b4 (This link if provided for information/ educational purposes only.) THIS TEST WAS PERFORMED AT: [facility] [address] [place] [address] [address]LO[address],[place] [address] OSEAS DE LA O MD 11/23/2021 3:51 PM EST Faye Florian HISTORICAL/NON ORDERABLE LABS Fi nal Result [facility] [address] * Hm Pap Smear (11/23/2021 12:00 AM EST) Historical Provider HEALTH MAINTENANCE Final Result from Last 3 Months or Most Recently Relevant to Health Maintenance Insurance [facility] C[place] ST[place] ADULT Care Teams Armored Transport Service Manager Relationship Specialty Start Date End Date Maurice Flores MD [address] [place] [phone] PCP - General Internal Medicine 08/25/19
--- OUTSIDE RECORDS SUMMARY | 2025-07-24 14:12 | XMS_ITS | Encounter Summary ---
Author Organization [employer] Address [address] [facility] [address]t [place] [address] Care Team Providers Care Assistant Name Role Phone Maurice Flores MD Primary Care Prov ider Encounter Details Date Type Department Care Team (Latest Contact Info) Description 07/01/2019 Abstract [facility] CONVERSIONS Dental, Provider, DDS Social History Tobacco [...] on filedocumented in this encounter Care Teams Assistant Relationship Specialty Start Date End Date Maurice Flores MD [address] [place] [address] PCP - General Internal Medicine 08/25/19 documented as of this encounter
--- OUTSIDE RECORDS SUMMARY | 2025-07-24 14:12 | XMS_ITS | Encounter Summary ---
Author Organization [employer] Address [address] [facility] [address]t [place] [address] Care Team Providers Care Facility Manager Histology Name Role Phone Maurice Flores MD Primary Care Prov ider Encounter Details Date Type Department Care Team (Latest Contact Info) Description 07/19/2022 Abstract [facility] CONVERSIONS Dental, Provider, DDS Social History [...] on filedocumented in this encounter Care Teams Facility Manager Histology Relationship Specialty Start Date End Date Maurice Flores MD [address] [place] [address] PCP - General Internal Medicine 08/25/19 documented as of this encounter
--- OUTSIDE RECORDS SUMMARY | 2025-07-24 14:12 | XMS_ITS | Encounter Summary ---
Author Organization [employer] Address [address] [facility] [address] [place] [address] Care Team Providers Care Gathering Machine Feeder Name Role Phone Maurice Flores MD Primary Care Prov ider Encounter Details Date Type Department Care Team (Latest Contact Info) Description 02/18/2021 Abstract [facility] CONVERSIONS Dental, Provider, DDS Social History [...] on filedocumented in this encounter Care Teams Gathering Machine Feeder Relationship Specialty Start Date End Date Maurice Flores MD [address] [place] [address] PCP - General Internal Medicine 08/25/19 documented as of this encounter
--- OUTSIDE RECORDS SUMMARY | 2025-07-24 14:12 | XMS_ITS | Encounter Summary ---
Author Organization [employer] Address [address] [facility] [address] [place] [address] Care Team Providers Care Mergers And Acquisitions Attorney Name Role Phone Maurice Flores MD Primary Care Prov ider Reason for Visit * Reason Onset Date Comments Appointment Request 05/02/2024 Encounter Details Date Type Department Care Team (Late st Contact Info) Description 05/02/2024 Telephone [facility] [address] [place] [address] Maurice Flores MD [address] [place], [place] [phone] Appointment Request Social History Tobacco Use Types [...] documented as of this encounter Care Teams Mergers And Acquisitions Attorney Relationship Specialty Start Date End Date Maurice Flores MD [address] [place] [phone] PCP - General Internal Medicine 08/25/19 documented as of this encounter
--- OUTSIDE RECORDS SUMMARY | 2025-07-24 14:12 | XMS_ITS | Encounter Summary ---
Author Organization [employer] Address [address] [facility] 7t [place] [address] Care Team Providers Care Middle School Librarian Name Role Phone Maurice Flores MD Primary Care Prov ider Encounter Details Date Type Department Care Team (Late st Contact Info) Description 06/20/2023 Abstract [facility] ADULT DENTAL [address] [place], [place] [phone] Alma Lott DDS Social History Tobacco Use [...] documented as of this encounter Care Teams Middle School Librarian Relationship Specialty Start Date End Date Maurice Flores MD [address] [place] [address] PCP - General Internal Medicine 08/25/19 documented as of this encounter
--- OUTSIDE RECORDS SUMMARY | 2025-07-24 14:12 | XMS_ITS | Encounter Summary ---
Author Organization [employer] Address [address] [facility] 7t [place] [address] Care Team Providers Care Design Engineering Intern Name Role Phone Maurice Flores MD Primary Care Prov ider Reason for Visit * Reason Comments Med Refill Encounter Details Date Type Department Care Team (Late st Contact Info) Description 10/24/2022 Refill [facility] [address] [place] [address] Maurice Flores MD [address] [place], [place] [phone] Social History Tobacco Use Types Packs/Day Years [...] on filedocumented in this encounter Care Teams Design Engineering Intern Relationship Specialty Start Date End Date Maurice Flores MD [address] [place] [address] PCP - General Internal Medicine 08/25/19 documented as of this encounter
--- OUTSIDE RECORDS SUMMARY | 2025-07-24 14:12 | XMS_ITS | Encounter Summary ---
Author Organization [employer] Address [address] [facility] [address] [facility] [address] [place] [address] Care Team Providers Care Document Management Analyst Name Role Phone Maurice Flores MD Primary Care Prov ider Encounter Details Date Type Department Care Team ([facility] st Contact Info) Description 07/21/2025 Telephone [facility] [address] [place], [place] [phone] Maurice Flores MD [address] [place], [place] [phone] Social History Tobacco Use Types Packs/Day Years [...] AM EDT documented as of this encounter Functional Status * Over the past 2 weeks, how often have you been bothered by any of the following problems? Question Answer Date of Assessment Author Patient Health Questionnaire-2 Score 1 10/2024 9:18 AM Di Arroyo [place] * [...] Author Not at all 07/22/2025 9:18 AM Marsha Arroyo MA * Feeling tired or having [...] 07/22/2025 9:18 AM Deann Arroyo [place] * Moving or speaking so slowly that other people could have noticed? Or the opposite - being so fidgety or restless that you have been moving around a lot more than usual. Answer Date of Assessment Author Not at all 07/22/2025 9:18 AM EDT Deann Valdes MA * Thoughts that you would be better off or hurting yourself in some way Answer Date of Assessment Author Not at all 07/22/2025 9:18 AM EDT Deann Valdes MA * Patient Health Questionnaire-9 Score Answer Date of Assessment Author 1 07/22/2025 9:18 AM EDT Deann Valdes MA * How difficult have these problems made it for you to do your work, take care of things at home, or get along with other people? Answer Date of Assessment Author Not difficult at all 07/22/2025 9:18 AM EDT Di Domingo MA documented as of this encounter Plan of Treatment Not on file documented as of this encounter Visit Diagnoses Not on filedocumented in this encounter Additional Health Concerns Assessment Noted Time PHQ-9 Depression Total Score: 0 06/13/20 23 2:56 PM EDT documented as of this encounter Care Teams Document Management Analyst Relationship Specialty Start Date End Date Maurice Flores MD [address] [place] [phone] PCP - General Internal Medicine 08/25/19 documented as of this encounter
--- OUTSIDE RECORDS SUMMARY | 2025-07-24 14:12 | XMS_ITS | Encounter Summary ---
Author Organization [employer] Address [address] [place] [address] Care Team Providers Care Refrigerator Mover Name Role Phone Maurice Flores MD Primary Care Prov ider Encounter Details Date Type Department Care Team (Late st Contact Info) Description 07/16/2023 Orders Only [facility] [address] [place] [address] Beti Schwarz Social History Tobacco Use Types [...] on file documented as of this encounter Procedures Procedure Name Priority Date/Time Associated Diagnosis Comments PATHOLOGY REPORT Routine 01/28/2024 1:42 PM EDT HM PAP/HPV Routine 11/23/2021 12:00 AM EST documented in this encounter Results * Enter charges (01/28/2024 1:42 PM EDT) 01/28/2024 1:42 PM EDT 01/29/2024 11:20 AM EDT [facility] LABS - 02/04/2024 2:36 PM EDT ----- ------- Name: Beth Shore Age/Sex: 33/F : 1990 Unit#: [id number] Attend Dr: Maurice Flores MD Re01/28/24 [facility] Location: HO.CHCLNP Disch: ----- ------- SPEC : [id number] RECD: 01/29/24 STATUS: EDILBERTO ALVA NUM: [id number] JESU: 01/28/24-[address] [facility] [address]: Maurice Flores MD ENTERED: 01/30/24 SP TYPE: Cytology OTHR DR: ORDERED: Cyto-enhanced Diagnosis Urine: Negative for high-grade urothelial carcinoma. COMMENT: Examination of a monolayer preparation slide shows many superficial benign squamous cells with bacteria, occasional benign urothelial cells, few inflammatory cells, and rare red blood cells. Clinical History Microscopic hematuria Material Received Urine Gross Description Received are 50 cc of clear yellow fluid from which a ThinPrep slide is prepared. ----- ------- Signed (signature on file) Alma Hinds 02/04/24 1436 ----- ------- END OF REPORT Maurice Hill MD HISTORICAL/NON ORD ERABLE LABS Final Result [facility] [address] [place] [phone] * Hm Pap Smear (11/23/2021 12:00 AM EST) Historical Provider HEALTH MAINTENANCE Final Result documented in this encounter Visit Diagnoses Not on filedocumented in this encounter Additional Health Concerns Assessment Noted Time PHQ-9 Depression Total Score: 0 06/13/20 23 2:56 PM EDT documented as of this encounter Care Teams Refrigerator Mover Relationship Specialty Start Date End Date Maurice Flores MD [address] [place] [id number] PCP - General Internal Medicine 08/25/19 documented as of this encounter
--- OUTSIDE RECORDS SUMMARY | 2025-07-24 14:12 | XMS_ITS | Clinical Summary ---
Author Organization [facility] Address [address] [place] [address] Care Team Providers Care Kettle Loader Name Role Phone Unavailable Primary Care Provider [...] series) 2008 COVID-19 Vaccine (2023-2 5 season) 2025 HPV Vaccines (No Doses Required) Completed Pneumococcal Vaccine: Pediat selvin (0-5 Years) and At-Risk Patients (6 to 49 Years) Aged Out No longer eligible b ased on patient's age to complete this topic
[2025-07-24 18:05] LABS: MANUAL DIFF FLAG NO
[2025-07-24 18:08] LABS: Hematocrit 39.7 % (37.0-47.0); Hemoglobin 13.2 g/dl (12.0-16.0); Imm Gran Abs Auto 0.01 X10*3/uL (0.00-0.03); Imm Gran Pct Auto 0.1 % (0.0-0.4); Lymphocytes Absolute Auto 3.3 X10*3/uL (1.2-4.9); Mean Corpuscular HGB Conc 33.2 g/dl (31.0-35.0); Mean Corpuscular Hemoglobin 30.3 pg (27.0-33.0); Mean Corpuscular Volume 91.3 fL (80.0-98.0); NRBC Abs Auto 0.000 X10*3/uL (0.0-0.012); NRBC Pct Auto 0.0 /100WBC (0.0-0.2); Platelet Count 310 X10*3/uL (160-400); Red Blood Count 4.35 X10*6/uL (4.20-5.50); White Blood Count 6.7 X10*3/uL (4.8-10.8)
[2025-07-24 18:27] LABS: Alanine Aminotransferase 32 U/L (0-31); Albumin Level 4.5 g/dL (3.5-5.0); Alkaline Phosphatase 65 U/L (39-117); Anion Gap 10 (12-20); Aspartate Amino Transferase 33 U/L (5-31); Blood Urea Nitrogen 9 mg/dL (9-16); Calcium 9.4 mg/dL (8.4-10.2); Carbon Dioxide 24 mmol/L (22-29); Chloride 109 mmol/L (96-108); Cholesterol 266 mg/dL (<200); Estimated Glomerular Filt Rate > 60; HDL Cholesterol 42 mg/dL (>40); Potassium 4.4 mmol/L (3.3-5.1); Sodium 139 mmol/L (135-145); Total Protein 7.6 g/dL (6.5-8.0); Triglycerides 179 mg/dL (<150)
== END 2025-07-24 14:00 | disposition home or self-care (01) ==
LOC: HO.CHCLDS 13:59
PROVIDERS: Visit Provider Internal Medicine
DX: I10 Essential (primary) hypertension (principal)
CPT/HCPCS: 36415; 80053; 80061; 84443; 85025